=== PATIENT | female | born 1950 | race Caucasian/White ===

== ENCOUNTER → 2018-04-17 13:38 | Outpatient (CLI) | payer MEDICARE, SELFPAY ==
--- NOTE | 2018-04-17 | DI.MG.S_ITS ---
BILATERAL DIGITAL SCREENING MAMMOGRAM 3D/2D WITH CAD: 04/17/2018 CLINICAL: Routine screening. Family history of breast cancer. Comparison is made to exams dated: 02/03/2017 mammogram, 02/01/2016 mammogram, and 01/22/2016 mammogram - [facility]. There are scattered fibroglandular elements in both breasts. Current study was also evaluated with a Computer Aided Detection (CAD) system. No significant masses, calcifications, or other findings are seen in either breast. There has been no significant interval change. IMPRESSION: NEGATIVE There is no mammographic evidence of malignancy. A 1 year screening mammogram is recommended. This exam was interpreted at Station ID: [id number]. NOTE: For mammograms, a report in lay terms will be sent to the patient. Approximately 15% of breast malignancies will not be visualized mammographically. In the management of a palpable breast mass, a negative mammogram must not discourage biopsy of a clinically suspicious lesion. Electronically Signed By: Edin perdomo/kobe:04/17/2018 15:31:43 copy to: Inez Thompson letter sent: Normal Exam ACR BI-RADS Category 1: Negative [id number]
== END ==
PROVIDERS: PCP Internal Medicine; Visit Provider Internal Medicine
DX: Z12.31 Encounter for screening mammogram for malignant neoplasm of breast (principal); Z80.3 Family history of malignant neoplasm of breast
CPT/HCPCS: 77063; 77067

== ENCOUNTER → 2018-11-25 13:50 | Outpatient (CLI) | payer MEDICARE, SELFPAY ==
[2018-11-25 14:23] LABS: Add Manual Diff / Slide Review NO; Basophils Absolute Auto 0 /uL (0-100); Basophils Percent Auto 0.7 % (0-2); Eosinophils Absolute Auto 100 /uL (0-450); Eosinophils Percent Auto 1.8 % (2-4); Hematocrit 42.3 % (36-46); Hemoglobin 14.3 g/dL (12.0-16.0); Lymphocytes Absolute Auto 1300 /uL (1100-4500); Lymphocytes Percent Auto 23.1 % (25-40); Mean Corpuscular HGB Conc 33.7 % (30-36); Mean Corpuscular Hemoglobin 30.3 PG (26-34); Monocytes Absolute Auto 400 /uL (0-900); Monocytes Percent Auto 6.6 % (3-14); Neutrophils Absolute Auto 3900 /uL (1500-7000); Neutrophils Percent Auto 67.8 % (50-75); Platelet Count 247 X10^3/uL (150-400); Red Cell Distribution Width 13.3 % (11.6-14.8); White Blood Cell Count 5.8 X10^3/uL (4.5-11.0)
[2018-11-25 14:50] LABS: Alanine Aminotransferase 29 IU/L (9-52); Albumin 4.6 g/dL (3.5-5.0); Albumin Globulin Ratio 1.8 (1.0-2.8); Alkaline Phosphatase 94 U/L (38-126); Aspartate Aminotransferase 22 IU/L (14-36); Bilirubin Total 0.3 mg/dL (0.2-1.3); Blood Urea Nitrogen 14 mg/dL (7-17); Carbon Dioxide 24 mmol/L (22-32); Chloride 104 mmol/L (98-107); Estimated Glomerular Filt Rate > 60.0 mL/min (>60); Globulin 2.6 g/dL (1.7-4.1); Glucose 114 mg/dL (80-110); HEMOLYSIS < 15 (0-50); Potassium 4.2 mmol/L (3.4-5.1); Sodium 139 mmol/L (137-145); Total Protein 7.2 g/dL (6.3-8.2)
[2018-11-27 14:25] LABS: Parathyroid Hormone Int 31 pg/mL (14-64)
== END ==
PROVIDERS: PCP Internal Medicine; Visit Provider Internal Medicine
DX: D35.1 Benign neoplasm of parathyroid gland (principal); E83.52 Hypercalcemia; I10 Essential (primary) hypertension
CPT/HCPCS: 36415; 80053; 83970; 85025

== ENCOUNTER → 2019-05-19 12:01 | Outpatient (CLI) | payer MEDICARE, SELFPAY ==
--- NOTE | 2019-05-19 | DI.MG.S_ITS ---
BILATERAL DIGITAL SCREENING MAMMOGRAM 3D/2D WITH CAD: 05/19/2019 CLINICAL: Routine screening. Family history of breast cancer. Comparison is made to exams dated: 04/17/2018 mammogram, 02/03/2017 mammogram, and 02/01/2016 mammogram - [facility]. There are scattered fibroglandular elements in both breasts. Current study was also evaluated with a Computer Aided Detection (CAD) system. No significant masses, calcifications, or other findings are seen in either breast. There has been no significant interval change. IMPRESSION: NEGATIVE There is no mammographic evidence of malignancy. A 1 year screening mammogram is recommended. This exam was interpreted at Station ID: [id number]. NOTE: For mammograms, a report in lay terms will be sent to the patient. Approximately 15% of breast malignancies will not be visualized mammographically. In the management of a palpable breast mass, a negative mammogram must not discourage biopsy of a clinically suspicious lesion. Electronically Signed By: Fredy bowling/kobe:05/19/2019 16:45:22 copy to: Inez Thompson letter sent: Normal Exam ACR BI-RADS Category 1: Negative [id number]
== END ==
PROVIDERS: PCP Internal Medicine; Visit Provider Obstetrics & Gynecology
DX: Z12.31 Encounter for screening mammogram for malignant neoplasm of breast (principal); Z80.3 Family history of malignant neoplasm of breast
CPT/HCPCS: 77063; 77067

== ENCOUNTER 2019-10-06 14:00 | Emergency (ER) | payer MEDICARE, SELFPAY ==
[2019-10-06 14:31] VITALS: BP 139/72; PULSE 80; RESP 16; TEMP 37.1; O2SAT 97; BMI 26.5
[2019-10-06 16:32] LABS: Add Manual Diff / Slide Review NO; Basophils Absolute Auto 0 /uL (0-100); Basophils Percent Auto 0.1 % (0-2); Eosinophils Absolute Auto 100 /uL (0-450); Eosinophils Percent Auto 0.6 % (2-4); Hematocrit 44.4 % (36-46); Hemoglobin 14.9 g/dL (12.0-16.0); Lymphocytes Absolute Auto 1200 /uL (1100-4500); Lymphocytes Percent Auto 12.1 % (25-40); Mean Corpuscular HGB Conc 33.6 % (30-36); Mean Corpuscular Hemoglobin 30.4 PG (26-34); Mean Corpuscular Volume 90.7 fL (80-100); Monocytes Absolute Auto 500 /uL (0-900); Monocytes Percent Auto 5.3 % (3-14); Neutrophils Absolute Auto 8000 /uL (1500-7000); Neutrophils Percent Auto 81.9 % (50-75); Platelet Count 263 X10^3/uL (150-400); Red Cell Distribution Width 13.3 % (11.6-14.8); White Blood Cell Count 9.8 X10^3/uL (4.5-11.0)
[2019-10-06 16:40] LABS: Alanine Aminotransferase 25 IU/L (<35); Albumin 4.7 g/dL (3.5-5.0); Albumin Globulin Ratio 1.7 (1.0-2.8); Alkaline Phosphatase 109 U/L (38-126); Aspartate Aminotransferase 26 IU/L (14-36); BUN Creatinine Ratio 17.1 (6-22); Bilirubin Total 0.5 mg/dL (0.2-1.3); Blood Urea Nitrogen 12 mg/dL (7-17); Calcium 10.7 mg/dL (8.4-10.2); Carbon Dioxide 30 mmol/L (22-32); Chloride 104 mmol/L (98-107); Estimated Glomerular Filt Rate > 60.0 mL/min (>60); Globulin 2.8 g/dL (1.7-4.1); Glucose 94 mg/dL (80-110); HEMOLYSIS 19 (0-50); Potassium 4.6 mmol/L (3.4-5.1); Sodium 140 mmol/L (137-145); Total Protein 7.5 g/dL (6.3-8.2)
--- NOTE | 2019-10-06 17:18 | PC.NURSE ---
pt states that she has not experienced any dizziness, room spinning, or syncope
--- NOTE | 2019-10-06 18:29 | ED.GIBLEED ---
HPI - GI Bleed General Chief complaint: GI Bleed Stated complaint: diarrhea last night,'bothered with a little blood' Time Seen by Provider: 10/06/19 18:29 Source: patient Mode of arrival: Ambulatory Limitations: no limitations History of Present Illness HPI Narrative: 68-year-old female comes complaint of abdominal pain across the lower abdomen that started last night. Patient states she had several episodes of diarrhea last evening. She had 1 this morning with a little bit of blood just at the end and when she wiped her rectum she had a small amount of blood. She continues to have sort of gassy crampy abdominal pain across her lower abdomen she denies fevers but felt a little chilled yesterday. She has had some nausea although she states it is currently resolved. She has not had any vomiting. Patient states that she has not any more bowel movements today. She denies any dysuria, urgency or frequency. No flank or back pain. She states she takes medication for hypertension. Her parathyroid is monitored but she denies any other surgical history. Patient also denies any chest pain, shortness of breath or dizziness or syncope. Related Data Previous Rx's Medication Instructions Recorded albuterol sulfate [Proventil HFA] 2 puff INH SEE INSTRUCTIONS PRN 09/12/17 #8.5 gm alprazolam 1 - 2 tab PO Q8H PRN #20 tab 09/12/17 [ESTRADIOL] VAGINAL #0 10/20/17 citalopram 20 mg tablet 20 mg PO QDAY #90 tab 12/01/18 lisinopril 10 mg tablet 10 mg PO QDAY #90 tab 12/01/18 prednisone 50 mg PO DAILY #5 tab 10/06/19 Allergies Allergy/AdvReac Type Severity Reaction Status Date / Time doxycycline [DOXYCYCLINE] Allergy Mild NAUSEA Verified 10/06/19 14:30 Penicillins [PENICILLINS] Allergy Mild RASH Verified 10/06/19 14:30 Review of Systems Review of Systems ROS Unobtainable: All systems reviewed & are unremarkable except as noted in HPI and below Patient History Medical History (Updated 10/06/19 @ 20:26 by Lizeth Samuel DO) Asthma (Chronic 02/11/12) Degeneration of intervertebral disc, site unspecified (Chronic 02/11/12) Hypercalcemia (Chronic) Hypertension (Chronic) Osteopenia (Chronic 04/12/14) Parathyroid adenoma (Chronic) Recurrent major depressive disorder, in full remission (Chronic 09/12/17) Family History (Updated 04/13/14 @ 00:00 by Inez Thompson MD) Father Hypertension Social History Smoking Status: Never smoker Substance Use Type: does not use Exam Narrative Exam Narrative: GENERAL: Alert and oriented x three, obese, well-appearing female in mild distress. HEENT: Head normocephalic, atraumatic, EOMI, pupils reactive, face symmetric, moist mucous membranes NECK: Supple, full range of motion CARDIOVASCULAR: Regular rate and rhythm without murmurs, rubs or gallops. RESPIRATORY: Breath sounds equal bilaterally, no wheezes rales or rhonchi. ABDOMEN: Soft, moderate right lower quadrant tenderness, very mild suprapubic left lower quadrant tenderness.. Normoactive bowel sounds all 4 quadrants. No guarding or rebound, rigidity, no mass : No CVA tenderness EXTREMITIES: Normal range of motion, no clubbing or edema. Neurovascularly intact NEUROLOGICAL: Cranial nerves II through XII grossly intact. Moving all extremities SKIN: Warm, dry, no petechiae, no rashes or lesions. Initial Vital Signs Initial Vital Signs: Vital Signs Temperature 98.7 F 10/06/19 14:31 Pulse Rate 80 10/06/19 14:31 Respiratory Rate 16 10/06/19 14:31 Blood Pressure 139/72 10/06/19 14:31 Pulse Oximetry 97 10/06/19 14:31 Course Orders Ordered: ED Orders 10/06/19 18:39 CT abdomen pelvis w con Stat Discontinued Medications Sodium Chloride (Normal Saline 0.9%) 1,000 mls @ 1,000 mls/hr IV BOLUS ONE Stop: 10/06/19 19:38 Last Infusion: 10/06/19 20:53 Dose: 0 mls/hr Documented by: AMINAHARRINGTO Admin: 10/06/19 19:12 Dose: 1,000 mls/hr Documented by: VICKY Prednisone (Deltasone) 40 mg PO NOW ONE Stop: 10/06/19 20:36 Last Admin: 10/06/19 20:46 Dose: 40 mg Documented by: VICKY Vital Signs Vital signs: Vital Signs - 8 hr 10/06/19 19:45 10/06/19 20:26 10/06/19 20:54 Pulse Rate 80 78 75 Respiratory Rate 19 16 16 Blood Pressure [Left Arm] 151/71 H 141/69 H 143/73 H Pulse Oximetry 97 98 99 MDM - GI Bleed Lab Data Attestation: I reviewed the patient's lab results. Result diagrams: 10/06/19 16:05 10/06/19 16:05 Labs: Lab Results 10/06/19 10/06/19 10/06/19 Range/Units 16:05 16:05 16:05 WBC 9.8 (4.5-11.0) X10^3/uL RBC 4.90 (4.0-5.2) X10^6/uL Hgb 14.9 (12.0-16.0) g/dL Hct 44.4 (36-46) % MCV 90.7 (80-100) fL MCH 30.4 (26-34) PG MCHC 33.6 (30-36) % RDW 13.3 (11.6-14.8) % Plt Count 263 (150-400) X10^3/uL Neut % (Auto) 81.9 H (50-75) % Lymph % (Auto) 12.1 L (25-40) % [place] % (Auto) 5.3 (3-14) % Eos % (Auto) 0.6 L (2-4) % Baso % (Auto) 0.1 (0-2) % Neut # (Auto) 8000 H (5869-1919) /uL Lymph # (Auto) 1200 (7414-8282) /uL [place] # (Auto) 500 (0-900) /uL Eos # (Auto) 100 (0-450) /uL Baso # (Auto) 0 (0-100) /uL Sodium 140 (137-145) mmol/L Potassium 4.6 (3.4-5.1) mmol/L Chloride 104 (98-107) mmol/L Carbon Dioxide 30 (22-32) mmol/L BUN 12 (7-17) mg/dL Creatinine 0.70 (0.52-1.04) mg/dL Estimated GFR > 60.0 (>60) mL/min BUN/Creatinine Ratio 17.1 (6-22) Glucose 94 (80-110) mg/dL Calcium 10.7 H (8.4-10.2) mg/dL Total Bilirubin 0.5 (0.2-1.3) mg/dL AST 26 (14-36) IU/L ALT 25 (<35) IU/L Alkaline Phosphatase 109 (38-126) U/L Total Protein 7.5 (6.3-8.2) g/dL Albumin 4.7 (3.5-5.0) g/dL Globulin 2.8 (1.7-4.1) g/dL Albumin/Globulin Ratio 1.7 (1.0-2.8) Lipase 82 (23-300) U/L Urine Dip Bedside Urine Glucose Negative Bedside Urine Bilirubin - Negative Bedside Urine Ketone +/- 5 Urine Specific [place] 1.015 Bedside Urine Occult Blood - Negative Bedside Urine pH 6.0 Bedside Urine Protein - Negative Bedside Urine Urobilinogen - Negative Bedside Urine Nitrite - Negative Bedside Urine Leukocytes - Negative Esterase Imaging Data CT scan - abdomen: Radiologist's impression: [address] [address] [address] Scan Report Signed Patient: Ysabel Nunes R#: [id number] : 1950cct:[id number] Age/Sex: 68 / FDate of Service: 10/06/19 Loc: ED Accession Number: [id number] Procedure: CT abdomen pelvis w con Ordering Provider: Lizeth Samuel D.O. PROCEDURE: CT ABDOMEN PELVIS W CON INDICATIONS: RLQ pain TECHNIQUE: After the administration of intravenous contrast, 5 mm thick sections acquired from the diaphragm to the symphysis. 5 mm coronal and sagittal reformats were acquired. For radiation dose reduction, the following was used: automated exposure control, adjustment of mA and/or kV according to patient size. COMPARISON: None. FINDINGS: Image quality: Excellent. ABDOMEN: Lung bases: Bibasilar scarring/atelectasis is seen. Heart size is normal. Solid organs: Liver is normal in size and enhancement. Gallbladder is within normal limits. Biliary system is non dilated. Pancreas enhances normally. Spleen is normal in size and enhancement. No adrenal nodules. Kidneys demonstrate normal size and enhancement, without hydronephrosis. Peritoneum and bowel: There is a small hiatal hernia. No bowel obstruction. Moderate wall thickening and luminal narrowing is noted involving the ascending colon beginning at the level of splenic flexure with mild pericolonic fat stranding extending to proximal sigmoid colon. No free fluid or free air. No evidence of acute diverticulitis or appendicitis. Nodes and vessels: No retroperitoneal or mesenteric adenopathy by size criteria. Aorta and inferior vena cava are normal in size. Miscellaneous: No ventral hernias. PELVIS: Genitourinary: Bladder wall thickness is normal. Miscellaneous: No inguinal hernias or adenopathy. Bones: No suspicious bony lesions. No vertebral body compression fractures. IMPRESSION: 1. Finding is suggestive of descending colitis of infectious or inflammatory origin. No evidence of acute appendicitis or diverticulitis. No bowel obstruction. No free fluid or free air. Small hiatal hernia. 2. Bibasilar dependent atelectasis. No renal stone hydronephrosis. Dictated by: Hao Foster M.D. on 10/06/2019 at 20:16 Approved by: Hao Foster M.D. on 10/06/2019 at 20:20 [facility] Narrative Medical decision making narrative: Discussed with patient her CT does show colitis, we discussed unclear if this is infectious, unlikely to be ischemic possibly inflammatory. She has been afebrile, her white count is not elevated and after discussion we elected to do a course of steroids. Patient would rather follow this course then try antibiotics. I feel it is an appropriate plan. Plan is for her to should follow up with her primary care. Pain has been controlled without any medication here in the emergency department so was not discharged home with any. Patient was given strict return precautions. Discharge Plan Departure Patient Disposition: Home Clinical Impression: Colitis Discharge Date/Time: 10/06/19 20:58 Instructions: DI for Colitis Activity Restrictions/Additional Instructions: Follow-up with your primary care in the next 3-5 days for recheck. Take steroids daily until gone. Your prescription was sent to [facility] in [place]. You may take Tylenol up to a 1000 mg every 8 hours and/or ibuprofen up to 800 mg every 8 hours as needed for pain. Return to the emergency department for fevers greater 100.4 F, rapidly worsening pain, persistent vomiting, increasing bloody stools with large clots, lightheadedness, passing out, back pain or flank pain or other new or concerning symptoms. Prescriptions: New prednisone 50 mg tablet 50 mg PO DAILY Qty: 5 RF: 0 No Action albuterol sulfate [Proventil HFA] 90 MCG/PUFF HFA aerosol inhaler 2 puff INH SEE INSTRUCTIONS PRNQty: 8.5 RF: PRN alprazolam 0.5 MG tablet 1 - 2 tab PO Q8H PRNQty: 20 RF: 0 [ESTRADIOL] Vaginal Qty: 0 RF: 0 citalopram [Celexa] 20 mg tablet 20 mg PO QDAY Qty: 90 RF: 3 lisinopril 10 mg tablet 10 mg PO QDAY Qty: 90 RF: 3 Referrals: Deo Ryder MD [Primary Care Provider] -
--- NOTE | 2019-10-06 18:39 | DI.CT.S_ITS ---
PROCEDURE: CT ABDOMEN PELVIS W CON INDICATIONS: RLQ pain TECHNIQUE: After the administration of intravenous contrast, 5 mm thick sections acquired from the diaphragm to the symphysis. 5 mm coronal and sagittal reformats were acquired. For radiation dose reduction, the following was used: automated exposure control, adjustment of mA and/or kV according to patient size. COMPARISON: None. FINDINGS: Image quality: Excellent. ABDOMEN: Lung bases: Bibasilar scarring/atelectasis is seen. Heart size is normal. Solid organs: Liver is normal in size and enhancement. Gallbladder is within normal limits. Biliary system is non dilated. Pancreas enhances normally. Spleen is normal in size and enhancement. No adrenal nodules. Kidneys demonstrate normal size and enhancement, without hydronephrosis. Peritoneum and bowel: There is a small hiatal hernia. No bowel obstruction. Moderate wall thickening and luminal narrowing is noted involving the ascending colon beginning at the level of splenic flexure with mild pericolonic fat stranding extending to proximal sigmoid colon. No free fluid or free air. No evidence of acute diverticulitis or appendicitis. Nodes and vessels: No retroperitoneal or mesenteric adenopathy by size criteria. Aorta and inferior vena cava are normal in size. Miscellaneous: No ventral hernias. PELVIS: Genitourinary: Bladder wall thickness is normal. Miscellaneous: No inguinal hernias or adenopathy. Bones: No suspicious bony lesions. No vertebral body compression fractures. IMPRESSION: 1. Finding is suggestive of descending colitis of infectious or inflammatory origin. No evidence of acute appendicitis or diverticulitis. No bowel obstruction. No free fluid or free air. Small hiatal hernia. 2. Bibasilar dependent atelectasis. No renal stone hydronephrosis. Dictated by: Hao Foster M.D. on 10/06/2019 at 20:16 Approved by: Hao Foster M.D. on 10/06/2019 at 20:20
[2019-10-06 18:46] VITALS: BP 156/81; PULSE 68; RESP 19; O2SAT 100
[2019-10-06] MEDS: SODIUM CHLORIDE 0.9% 1,000 ML 1000 ML IV (19:12)
[2019-10-06 19:15] LABS: Lipase 82 U/L (23-300)
[2019-10-06 19:45] VITALS: BP 151/71; PULSE 80; RESP 19; O2SAT 97
[2019-10-06 20:26] VITALS: BP 141/69; PULSE 78; RESP 16; O2SAT 98
[2019-10-06] MEDS: predniSONE 20 MG TABLET 40 MG PO (20:46)
[2019-10-06 20:54] VITALS: BP 143/73; PULSE 75; RESP 16; O2SAT 99
== END 2019-10-06 20:58 | disposition home or self-care (01) ==
PROVIDERS: Emergency Medicine; Emergency Provider Emergency Medicine; PCP Internal Medicine
DX: K52.9 Noninfective gastroenteritis and colitis, unspecified (principal); R10.31 Right lower quadrant pain
CPT/HCPCS: 36415; 74177; 80053; 81003; 83690; 85025; 99283; 99284; Q9967

== ENCOUNTER 2019-10-07 12:58 | Emergency (ER) | payer MEDICARE, SELFPAY ==
[2019-10-07 13:01] VITALS: BP 154/82; PULSE 88; RESP 20; TEMP 36.5; O2SAT 99
[2019-10-07 13:39] LABS: Add Manual Diff / Slide Review NO; Basophils Absolute Auto 0 /uL (0-100); Basophils Percent Auto 0.3 % (0-2); Eosinophils Absolute Auto 0 /uL (0-450); Hematocrit 43.4 % (36-46); Hemoglobin 14.5 g/dL (12.0-16.0); Lymphocytes Absolute Auto 800 /uL (1100-4500); Lymphocytes Percent Auto 5.5 % (25-40); Mean Corpuscular HGB Conc 33.3 % (30-36); Mean Corpuscular Hemoglobin 30.1 PG (26-34); Mean Corpuscular Volume 90.3 fL (80-100); Monocytes Absolute Auto 400 /uL (0-900); Monocytes Percent Auto 2.8 % (3-14); Neutrophils Absolute Auto 13500 /uL (1500-7000); Neutrophils Percent Auto 91.4 % (50-75); Platelet Count 245 X10^3/uL (150-400); Red Blood Cell Count 4.81 X10^6/uL (4.0-5.2); Red Cell Distribution Width 13.4 % (11.6-14.8); White Blood Cell Count 14.7 X10^3/uL (4.5-11.0)
[2019-10-07 14:30] VITALS: BP 163/76; PULSE 79; RESP 16; O2SAT 93
--- NOTE | 2019-10-07 15:27 | ED_ITS ---
HPI - GI Bleed <Vicky Keith PA-C - Last Filed: 10/07/19 20:45> General Chief complaint: GI Bleed Stated complaint: has colitis, found blood in stool Time Seen by Provider: 10/07/19 14:23 Source: patient Mode of arrival: Ambulatory Limitations: no limitations History of Present Illness HPI Narrative: This 68-year-old female returns to ED secondary to rectal bleeding. She was seen here yesterday and diagnosed with colitis. She states after she got steroids, she felt better, slept well. This morning she states she got up and ate her Cheerios and had coffee. She had a small bowel movement and noted a streak of blood on the toilet paper. She states she has had minimal abdominal cramping, mostly earlier and gas sensation, but overall feeling much better. She feels hungry. She has not had any fever. She has not had any vomiting. She has not had any recurrent diarrhea. She does have a history of hemorrhoids and has noted some irritation and itching. Denies any other co mplaints on systems review, did take her prednisone this morning. Related Data Home Medications Medication Instructions Recorded Confirmed alprazolam 1 - 2 tab PO Q8H PRN 10/07/19 10/11/19 citalopram [Celexa] 20 mg PO DAILY 10/07/19 10/11/19 [ESTRADIOL] 1 dose VAGINAL DIRECTED PRN 10/11/19 Previous Rx's Medication Instructions Recorded albuterol sulfate [Proventil HFA] 2 puff INH SEE INSTRUCTIONS PRN 09/12/17 #8.5 gm lisinopril 10 mg tablet 10 mg PO QDAY #90 tab 12/01/18 Allergies Allergy/AdvReac Type Severity Reaction Status Date / Time doxycycline [DOXYCYCLINE] Allergy Mild NAUSEA Verified 10/11/19 15:29 Penicillins [PENICILLINS] Allergy Mild RASH Verified 10/11/19 15:29 Review of Systems <Vicky Keith PA-C - Last Filed: 10/07/19 20:45> Review of Systems ROS Unobtainable: All systems reviewed & are unremarkable except as noted in HPI and below Patient History <Vicky Keith PA-C - Last Filed: 10/07/19 20:45> Medical History Asthma (Chronic 02/11/12) Degeneration of intervertebral disc, site unspecified (Chronic 02/11/12) Hypercalcemia (Chronic) Hypertension (Chronic) Osteopenia (Chronic 04/12/14) Parathyroid adenoma (Chronic) Recurrent major depressive disorder, in full remission (Chronic 09/12/17) Family History (Updated 04/13/14 @ 00:00 by Inez Thompson MD) Father Hypertension Social History Smoking Status: Never smoker Smoking Status: Never smoker Substance Use Type: does not use Exam <Vicky Keith PA-C - Last Filed: 10/07/19 20:45> Narrative Exam Narrative: GENERAL APPEARANCE: Patient sitting comfortably, in no distress. HEENT: PERRL, EOMI, no scleral icterus NECK: Supple, no masses LUNGS: Clear to auscultation bilaterally. HEART: Rate and rhythm regular, normal S1 and S2, no S3 or S4. ABDOMEN: Soft, nontender, nondistended, bowel sounds present x 4 quadrants, no masses palpable, no hepatosplenomegaly. EXTREMITIES: No edema DERMATOLOGIC: No jaundice or exanthem NEUROLOGIC: Alert and oriented with normal speech and coordination RECTAL: On external exam there is some skin irritation, no masses or bleeding Initial Vital Signs Initial Vital Signs: Vital Signs Temperature 97.7 F 10/07/19 13:01 Pulse Rate 88 10/07/19 13:01 Respiratory Rate 20 10/07/19 13:01 Blood Pressure 154/82 H 10/07/19 13:01 Pulse Oximetry 99 10/07/19 13:01 <Lauryn Zhang MD - Last Filed: 10/16/19 07:19> Initial Vital Signs Initial Vital Signs: Vital Signs Temperature 97.7 F 10/07/19 13:01 Pulse Rate 88 10/07/19 13:01 Respiratory Rate 20 10/07/19 13:01 Blood Pressure 154/82 H 10/07/19 13:01 Pulse Oximetry 99 10/07/19 13:01 Course <Vicky Keith PA-C - Last Filed: 10/07/19 20:45> Orders Ordered: ED Orders 10/07/19 13:23 CBC Auto Diff [Complete Blood Count AUTO DIFF] Stat 10/07/19 14:10 Fecal Leukocytes Stat GI Panel (Film Array) Stat Stool Culture Stat Vital Signs Vital signs: Vital Signs - 8 hr 10/07/19 13:01 10/07/19 14:30 10/07/19 15:34 Temperature 97.7 F Pulse Rate 88 79 66 Respiratory Rate 20 16 14 Blood Pressure 154/82 H Blood Pressure [Left Arm] 163/76 H 134/69 Pulse Oximetry 99 93 98 10/07/19 16:30 Temperature Pulse Rate 68 Respiratory Rate 17 Blood Pressure 136/63 Blood Pressure [Left Arm] Pulse Oximetry 99 <Lauryn Zhang MD - Last Filed: 10/16/19 07:19> Orders Ordered: ED Orders 10/07/19 13:23 CBC Auto Diff [Complete Blood Count AUTO DIFF] Stat 10/07/19 14:10 Fecal Leukocytes Stat GI Panel (Film Array) Stat Stool Culture Stat Vital Signs Vital signs: Vital Signs - 8 hr 10/07/19 13:01 10/07/19 14:30 10/07/19 15:34 Temperature 97.7 F Pulse Rate 88 79 66 Respiratory Rate 20 16 14 Blood Pressure 154/82 H Blood Pressure [Left Arm] 163/76 H 134/69 Pulse Oximetry 99 93 98 10/07/19 16:30 Temperature Pulse Rate 68 Respiratory Rate 17 Blood Pressure 136/63 Blood Pressure [Left Arm] Pulse Oximetry 99 MDM - GI Bleed <Vicky Keith PA-C - Last Filed: 10/07/19 20:45> Lab Data Result diagrams: 10/07/19 13:23 Labs: Lab Results 10/07/19 10/07/19 Range/Units 13:23 14:10 WBC 14.7 H (4.5-11.0) X10^3/uL RBC 4.81 (4.0-5.2) X10^6/uL Hgb 14.5 (12.0-16.0) g/dL Hct 43.4 (36-46) % MCV 90.3 (80-100) fL MCH 30.1 (26-34) PG MCHC 33.3 (30-36) % RDW 13.4 (11.6-14.8) % Plt Count 245 (150-400) X10^3/uL Neut % (Auto) 91.4 H (50-75) % Lymph % (Auto) 5.5 L (25-40) % [place] % (Auto) 2.8 L (3-14) % Eos % (Auto) 0.0 L (2-4) % Baso % (Auto) 0.3 (0-2) % Neut # (Auto) 70686 H (8272-3208) /uL Lymph # (Auto) 800 L (6687-0496) /uL [place] # (Auto) 400 (0-900) /uL Eos # (Auto) 0 (0-450) /uL Baso # (Auto) 0 (0-100) /uL Stl C. cayetanensis PCR Not Reportable Stool Rotavirus (PCR) Not Reportable Stool Adenovirus (PCR) Not Reportable Stool Astrovirus (PCR) Not Reportable Stool Cryptosporidium PCR Not Reportable Stl E.coli Shiga Tox PCR Not Reportable St Sh/Enteroin Ecoli PCR Not Reportable Stool E coli O157 PCR Not Reportable Stl Enterotoxigenic E PCR Not Reportable Stool EPEC (PCR) Not Reportable Stl E. histolytica PCR Not Reportable Stool Giardia Lamblia PCR Not Reportable Stool Sapovirus (PCR) Not Reportable Stl P. shigelloides PCR Not Reportable St Y.enterocolitica PCR Not Reportable Stool Vibrio (PCR) Not Reportable Stl Vibrio cholerae PCR Not Reportable Stl Enteroaggr Ecoli PCR Not Reportable Stl Norovirus GI/GII PCR Not Reportable Campylobacter (PCR) (Not Detect) C. difficile Tox (PCR) Not Reportable Salmonella (PCR) Not Reportable Point of Care Testing Stool Occult Blood Positive <Lauryn Zhang MD - Last Filed: 10/16/19 07:19> Lab Data Labs: Lab Results 10/07/19 10/07/19 Range/Units 13:23 14:10 WBC 14.7 H (4.5-11.0) X10^3/uL RBC 4.81 (4.0-5.2) X10^6/uL Hgb 14.5 (12.0-16.0) g/dL Hct 43.4 (36-46) % MCV 90.3 (80-100) fL MCH 30.1 (26-34) PG MCHC 33.3 (30-36) % RDW 13.4 (11.6-14.8) % Plt Count 245 (150-400) X10^3/uL Neut % (Auto) 91.4 H (50-75) % Lymph % (Auto) 5.5 L (25-40) % [place] % (Auto) 2.8 L (3-14) % Eos % (Auto) 0.0 L (2-4) % Baso % (Auto) 0.3 (0-2) % Neut # (Auto) 46314 H (8185-7039) /uL Lymph # (Auto) 800 L (2325-8389) /uL [place] # (Auto) 400 (0-900) /uL Eos # (Auto) 0 (0-450) /uL Baso # (Auto) 0 (0-100) /uL Stl C. cayetanensis PCR Not Reportable Stool Rotavirus (PCR) Not Reportable Stool Adenovirus (PCR) Not Reportable Stool Astrovirus (PCR) Not Reportable Stool Cryptosporidium PCR Not Reportable Stl E.coli Shiga Tox PCR Not Reportable St Sh/Enteroin Ecoli PCR Not Reportable Stool E coli O157 PCR Not Reportable Stl Enterotoxigenic E PCR Not Reportable Stool EPEC (PCR) Not Reportable Stl E. histolytica PCR Not Reportable Stool Giardia [place]lia PCR Not Reportable Stool Sapovirus (PCR) Not Reportable Stl P. shigelloides PCR Not Reportable St Y.enterocolitica PCR Not Reportable Stool Vibrio (PCR) Not Reportable Stl Vibrio cholerae PCR Not Reportable Stl Enteroaggr Ecoli PCR Not Reportable Stl Norovirus GI/GII PCR Not Reportable Campylobacter (PCR) (Not Detect) C. difficile Tox (PCR) Not Reportable Salmonella (PCR) Not Reportable Point of Care Testing Stool Occult Blood Positive Discharge Plan Departure Patient Disposition: Home Clinical Impression: Colitis Discharge Date/Time: 10/07/19 16:31 Instructions: DI for Colitis Activity Restrictions/Additional Instructions: Since you are feeling substantially improved today, please continue the prednisone as Dr. Samuel instructed. The changes in your lab work are expected on the steroids, and you do not have signs of significant internal bleeding on the lab work today. We were unable to run most stool studies since you have not had recurrent diarrhea. You may continue to experience a little bit of bleeding due to the inflammation, however this will likely gradually resolve with the steroids. As we talked about, you should return if you have any acutely worsening symptoms again, i.e. severe pain, new fever, vomiting, etc. Otherwise please see your PCP by the 1st of next week (before you run out of the prednisone) for repeat exam, and to determine whether to continue the prednisone. You can discuss colonoscopy referral at that time. Thank you for your patience with our busy emergency department today. Prescriptions: No Action albuterol sulfate [Proventil HFA] 90 MCG/PUFF HFA aerosol inhaler 2 puff INH SEE INSTRUCTIONS PRNQty: 8.5 RF: PRN lisinopril 10 mg tablet 10 mg PO QDAY Qty: 90 RF: 3 alprazolam 0.5 MG tablet 1 - 2 tab PO Q8H PRN (Reason: Anxiety) RF: 0 citalopram [Celexa] 20 mg tablet 20 mg PO DAILY RF: 0 [ESTRADIOL] 1 dose Vaginal DIRECTED PRNRF: 0 Referrals: Deo Ryder MD [Primary Care Provider] -
--- NOTE | 2019-10-07 15:33 | PC.NURSE ---
Per Angélica Subramanian RN
[2019-10-07 15:34] VITALS: BP 134/69; PULSE 66; RESP 14; O2SAT 98
--- NOTE | 2019-10-07 16:27 | PC.NURSE ---
Patient reports she was seen here yesterday and diagnosed with Colitis. Today had two episodes of stool that was formed with blood on the toilet paper and streaking the stool.
[2019-10-07 16:30] VITALS: BP 136/63; PULSE 68; RESP 17; O2SAT 99
== END 2019-10-07 16:31 | disposition home or self-care (01) ==
PROVIDERS: Emergency Provider Internal Medicine; PCP Internal Medicine
DX: K52.9 Noninfective gastroenteritis and colitis, unspecified (principal)
CPT/HCPCS: 36415; 82272; 85025; 87045; 87177; 87205; 87507; 87899; 99283

== ENCOUNTER → 2020-05-29 16:48 | Outpatient (CLI) | payer MEDICARE, SELFPAY ==
--- NOTE | 2020-05-29 | DI.MG.S_ITS ---
BILATERAL DIGITAL SCREENING MAMMOGRAM 3D/2D WITH CAD: 05/29/2020 CLINICAL: Routine screening. Family history of breast cancer. Comparison is made to exams dated: 05/19/2019 mammogram, 04/17/2018 mammogram, 02/03/2017 mammogram, 01/22/2016 mammogram, 01/17/2015 mammogram, and 12/30/2013 mammogram - [facility]. There are scattered fibroglandular elements in both breasts. Current study was also evaluated with a Computer Aided Detection (CAD) system. No significant masses, calcifications, or other findings are seen in either breast. There has been no significant interval change. IMPRESSION: NEGATIVE There is no mammographic evidence of malignancy. A 1 year screening mammogram is recommended. This exam was interpreted at Station ID: [id number]. NOTE: For mammograms, a report in lay terms will be sent to the patient. Approximately 15% of breast malignancies will not be visualized mammographically. In the management of a palpable breast mass, a negative mammogram must not discourage biopsy of a clinically suspicious lesion. Electronically Signed By: Dale piña/kobe:05/29/2020 17:09:08 copy to: Inez Thompson letter sent: Normal Exam ACR BI-RADS Category 1: Negative [id number]
== END ==
PROVIDERS: PCP Internal Medicine; Referring Provider Internal Medicine; Visit Provider Internal Medicine
DX: Z12.31 Encounter for screening mammogram for malignant neoplasm of breast (principal); Z80.3 Family history of malignant neoplasm of breast
CPT/HCPCS: 77063; 77067

== ENCOUNTER 2020-06-06 20:08 | Emergency (ER) | payer MEDICARE, SELFPAY ==
[2020-06-06 20:14] VITALS: BP 166/76; PULSE 85; RESP 18; TEMP 36.9; O2SAT 97
--- NOTE | 2020-06-06 20:17 | ED.BACK ---
HPI - Back Pain/Injury General Chief Complaint: Back Pain/Injury Stated Complaint: lower back pain and left leg pain Time Seen by Provider: 06/06/20 20:10 Source: patient Mode of arrival: Ambulatory Limitations: no limitations History of Present Illness HPI Narrative: 69F non smoker with history of asthma, neck, and back pain presents with her and the chief complaint of back pain over the course of the day. She denies an obvious specific injury or trauma. Her pain is in the left lower back and radiates down her left leg. She denies numbness, tingling, or weakness. She has no foot drop. She denies loss of control of bowel or bladder. She's had no fever or chills. She denies history of IVDA and takes no blood thinners. Her pain is worse with motion and improves with rest. She is otherwise fine and well. MD Complaint: back pain Onset (ago): hour(s) Duration: constant Similar Symptoms Previously: No Location: lumbar spine Severity: moderate Quality: aching Radiation: left leg Relieving factors: immobilization Exacerbating factors: movement Context: turning/twisting and bending Associated symptoms: difficulty walking Related Data Home Medications Medication Instructions Recorded Confirmed alprazolam 1 - 2 tab PO Q8H PRN 10/07/19 10/11/19 [ESTRADIOL] 1 dose VAGINAL DIRECTED PRN 10/11/19 Previous Rx's Medication Instructions Recorded albuterol sulfate [Proventil HFA] 2 puff INH SEE INSTRUCTIONS PRN 09/12/17 #8.5 gm citalopram 20 mg tablet 20 mg PO DAILY #90 tab 12/23/19 lisinopril 10 mg tablet 10 mg PO QDAY #90 tab 12/23/19 ketorolac 10 mg PO Q6H PRN #14 tab 06/06/20 prednisone 20 mg PO DAILY #5 tab 06/06/20 Allergies Allergy/AdvReac Type Severity Reaction Status Date / Time doxycycline [DOXYCYCLINE] Allergy Mild NAUSEA Verified 10/11/19 15:29 Penicillins [PENICILLINS] Allergy Mild RASH Verified 10/11/19 15:29 Review of Systems Constitutional Constitutional: Denies chills, Denies fatigue, Denies fever(s), Denies frequent falls, Denies lethargy and Denies weakness Eyes Eyes: Denies change in vision, Denies eye discharge, Denies irritation and Denies loss of vision ENT Ears, Nose, Mouth, and Throat: Denies change in voice, Denies dizziness, Denies neck pain, Denies sore throat and Denies throat swelling Cardiovascular Cardiovascular: Denies chest pain, Denies irregular heart rhythm, Denies lightheadedness, Denies palpitations, Denies dyspnea, Denies dyspnea on exertion and Denies orthopnea Respiratory Respiratory: Denies cough, Denies dyspnea, Denies dyspnea on exertion and Denies wheezing Gastrointestinal Gastrointestinal: Denies abdominal pain, Denies change in bowel habits, Denies diarrhea, Denies nausea and Denies vomiting Musculoskeletal Musculoskeletal: Reports back pain, Denies neck pain and Denies numbness Integumentary/Breasts Skin/Breast: Denies pruritus, Denies erythema, Denies rash and Denies wounds Neurologic Neurologic: Denies behavioral changes, Denies confusion, Denies dizziness, Denies frequent falls, Denies loss of vision, Denies numbness and Denies weakness Psychiatric Psychiatric: Denies anxiety, Denies behavioral changes, Denies confusion, Denies depression, Denies homicidal ideation and Denies suicidal ideation Endocrine Endocrine: Denies fatigue, Denies flushing and Denies palpitations Hematologic/Lymphatic Hematologic/Lymphatic: Denies easy bruising Allergic/Immunologic Allergic/Immunologic: Denies urticaria, Denies throat swelling and Denies wheezing Patient History Medical History Asthma (Chronic 02/11/12) Degeneration of intervertebral disc, site unspecified (Chronic 02/11/12) Hypercalcemia (Chronic) Hypertension (Chronic) Osteopenia (Chronic 04/12/14) Parathyroid adenoma (Chronic) Recurrent major depressive disorder, in full remission (Chronic 09/12/17) Family History Father Hypertension Social History Smoking Status: Never smoker Smoking Status: Never smoker Substance Use Type: does not use Exam Initial Vital Signs Initial Vital Signs: Vital Signs Temperature 98.4 F 06/06/20 20:14 Pulse Rate 85 06/06/20 20:14 Respiratory Rate 18 06/06/20 20:14 Blood Pressure 166/76 H 06/06/20 20:14 Pulse Oximetry 97 06/06/20 20:14 Const General: cooperative and well developed Nutritional Appearance: well nourished [facility] Head: normocephalic and atraumatic Ears: external ears normal and TM's normal bilaterally Nose: external nose normal and No nasal discharge Face and sinus: sinuses nontender, face symmetric, no sinus tenderness and No dry mucous membranes Mouth: oral mucosae normal and moist mucous membranes Teeth and gingiva: dentition normal Throat: tonsils normal and uvula midline Eyes General: appearance normal, both eyes and all related structures Eyelids: eyelids normal Conjunctivae: conjunctivae normal Sclera: sclerae normal Pupils: PERRL EOM: EOM intact bilaterally Neck Neck: normal visual inspection, trachea midline, No lymphadenopathy, No midline deformity and No JVD Lymphatic: No lymphedema Chest Chest: normal inspection of the chest Resp Effort & Inspection: normal respiratory effort, able to speak in complete sentences, no respiratory distress and no use of accessory muscles Auscultation: clear to auscultation bilaterally, no rales, no rhonchi and no wheezes Cardio Rate: regular rate Rhythm: regular rhythm Heart Sounds: no click, no gallops, no murmurs and no rubs Pulses: normal peripheral pulses GI Inspection: non-distended Palpation: soft, no hepatosplenomegaly, No guarding, No pulsatile mass and No tender Auscultation: normal bowel sounds Back/Spine/Pelvis Other: BACK: lead oxide mill tender but free of any obvious external abnormalities. Patient exam notes decreased range of motion and muscle spasm, but no CVA tenderness, or vertebral point tenderness. There are no symptoms of cauda equina such as saddle anesthesia, and decreased reflexes, decreased sensation or strength. Skin General: no rashes or lesions noted, No jaundice and No petechiae Neuro General: patient alert, patient oriented x3, gait normal and no focal motor deficits Speech: speech normal Extrem General: full ROM, no clubbing, cyanosis or edema, no pedal edema and no calf tenderness Psych Appearance: well kempt Mental Status: mental status grossly normal Attitude: cooperative Thought Content: normal and suicidality Judgment: judgment good Course Orders Ordered: Discontinued Medications Hydrocodone Bitart/Acetaminophen (Vicodin 5/325 Prepack) 1 bottle MIS SEEINSTR ONE Stop: 06/06/20 20:56 Last Admin: 06/06/20 21:03 Dose: 1 bottle Documented by: AKINNEY Ketorolac Tromethamine (Toradol) 60 mg IM NOW ONE Stop: 06/06/20 20:55 Last Admin: 06/06/20 21:03 Dose: 60 mg Documented by: YAAKOV Prednisone (Deltasone) 40 mg PO NOW ONE Stop: 06/06/20 20:55 Last Admin: 06/06/20 21:03 Dose: 40 mg Documented by: YAAKOV Vital Signs Vital signs: Vital Signs - 8 hr 06/06/20 20:14 06/06/20 20:45 Temperature 98.4 F Pulse Rate 85 89 Respiratory Rate 18 14 Blood Pressure 166/76 H 149/66 H Pulse Oximetry 97 96 MDM - Back Pain/Injury Lab Data Labs: Urine Dip Bedside Urine Glucose Negative Bedside Urine Bilirubin - Negative Bedside Urine Ketone - Negative Urine Specific [place] 1.015 Bedside Urine Occult Blood - Negative Bedside Urine pH 7 Bedside Urine Protein - Negative Bedside Urine Urobilinogen - Negative Bedside Urine Nitrite - Negative Bedside Urine Leukocytes - Negative Esterase MDM Narrative Medical decision making narrative: Multiple etiologies of back pain considered including; Epidural abscess, cauda equina, mass occupying lesion, and other considered Patient's symptoms improved over duration of stay with above-stated therapies. Findings and discharge diagnosis discussed with patient/family followed by verbalization of understanding Return precautions discussed with patient/family whom verbalize understanding. Discharge Plan Departure Patient Disposition: Home Clinical Impression: Strain of lumbar region Qualifiers: Encounter type: initial encounter Qualified Code(s): S39.012A - Strain of muscle, fascia and tendon of lower back, initial encounter Discharge Date/Time: 06/06/20 21:10 Instructions: DI for Lumbar Radiculopathy Activity Restrictions/Additional Instructions: *You have been diagnosed with [lumbar radiculopathy] *What to do: *Take medications as directed: Prescription sent to [facility] in [place] *Follow up with your primary care provider in 2-3 days, call for an appointment. Let them know you were seen in the Emergency Department and that we ask that you be seen in follow up *Return to ER if you should have any new, worsening or concerning symptoms, such as [loss of control of bowel or bladder, lower extremity weakness, or other bothersome symptoms] Prescriptions: New prednisone 20 mg tablet 20 mg PO DAILY Qty: 5 RF: 0 ketorolac 10 mg tablet 10 mg PO Q6H PRN (Reason: pain) Qty: 14 RF: 0 No Action albuterol sulfate [Proventil HFA] 90 MCG/PUFF HFA aerosol inhaler 2 puff INH SEE INSTRUCTIONS PRNQty: 8.5 RF: PRN lisinopril 10 mg tablet 10 mg PO QDAY Qty: 90 RF: 3 citalopram [Celexa] 20 mg tablet 20 mg PO DAILY Qty: 90 RF: 1 alprazolam 0.5 MG tablet 1 - 2 tab PO Q8H PRN (Reason: Anxiety) RF: 0 [ESTRADIOL] 1 dose Vaginal DIRECTED PRNRF: 0 Referrals: Deo Ryder MD [Primary Care Provider] -
[2020-06-06 20:45] VITALS: BP 149/66; PULSE 89; RESP 14; O2SAT 96
[2020-06-06] MEDS: predniSONE 20 MG TABLET 40 MG PO (21:03)
[2020-06-06] MEDS: KETOROLAC 60 MG/2 ML VIAL IM (21:03)
[2020-06-06] MEDS: HYDROCODONE/ACET 5/325 PREPACK 1 BOTTLE MISC (21:03)
== END 2020-06-06 21:10 | disposition home or self-care (01) ==
PROVIDERS: Emergency Provider Emergency Medicine; PCP Internal Medicine; Referring Provider Internal Medicine
DX: S39.012A Strain of muscle, fascia and tendon of lower back, initial encounter (principal)
CPT/HCPCS: 81003; 96372; 99283; J1885

== ENCOUNTER → 2020-12-11 11:36 | Outpatient (CLI) | payer MEDICARE, SELFPAY ==
[2020-12-11 12:46] LABS: Add Manual Diff / Slide Review NO; Basophils Absolute Auto 100 /uL (0-100); Eosinophils Absolute Auto 100 /uL (0-450); Hematocrit 42.8 % (36-46); Hemoglobin 14.1 g/dL (12.0-16.0); Lymphocytes Absolute Auto 1500 /uL (1100-4500); Lymphocytes Percent Auto 28.5 % (25-40); Mean Corpuscular HGB Conc 32.9 % (30-36); Mean Corpuscular Hemoglobin 30.4 PG (26-34); Mean Corpuscular Volume 92.3 fL (80-100); Monocytes Absolute Auto 400 /uL (0-900); Monocytes Percent Auto 7.3 % (3-14); Neutrophils Absolute Auto 3300 /uL (1500-7000); Neutrophils Percent Auto 61.2 % (50-75); Platelet Count 228 X10^3/uL (150-400); Red Blood Cell Count 4.63 X10^6/uL (4.0-5.2); Red Cell Distribution Width 12.9 % (11.6-14.8); White Blood Cell Count 5.3 X10^3/uL (4.5-11.0)
[2020-12-11 13:06] LABS: Alanine Aminotransferase 19 IU/L (<35); Albumin 4.3 g/dL (3.5-5.0); Albumin Globulin Ratio 1.7 (1.0-2.8); Alkaline Phosphatase 101 U/L (38-126); Aspartate Aminotransferase 23 IU/L (14-36); BUN Creatinine Ratio 16.3 (6-22); Bilirubin Total 0.4 mg/dL (0.2-1.3); Blood Urea Nitrogen 13 mg/dL (7-17); Calcium 10.8 mg/dL (8.4-10.2); Carbon Dioxide 32 mmol/L (22-32); Chloride 104 mmol/L (98-107); Cholesterol 211 mg/dL (140-199); Estimated Glomerular Filt Rate > 60.0 mL/min (>60); Globulin 2.6 g/dL (1.7-4.1); Glucose 98 mg/dL (80-110); HDL Cholesterol 72 mg/dL (40-60); HEMOLYSIS < 15 (0-50); LDL Cholesterol Calculated 111 mg/dL (<100); Potassium 4.7 mmol/L (3.4-5.1); Sodium 137 mmol/L (137-145); Total Protein 6.9 g/dL (6.3-8.2); Triglycerides 140 mg/dL (35-150)
== END ==
PROVIDERS: PCP Internal Medicine; Referring Provider Internal Medicine; Visit Provider Internal Medicine
DX: D64.9 Anemia, unspecified (principal); I10 Essential (primary) hypertension; D35.1 Benign neoplasm of parathyroid gland; E83.52 Hypercalcemia
CPT/HCPCS: 36415; 80053; 80061; 85025

== ENCOUNTER 2021-02-15 15:44 | Emergency (ER) | payer MEDICARE, SELFPAY ==
[2021-02-15 15:48] VITALS: BP 135/68; PULSE 90; RESP 16; TEMP 37.1; O2SAT 96; BMI 23.9
--- NOTE | 2021-02-15 16:31 | ED_ITS ---
HPI - Skin/Abscess/Foreign Bdy General Chief complaint: Skin/Abscess/Foreign Body Stated complaint: facial injury s/p fall Time Seen by Provider: 02/15/21 15:48 Source: patient Mode of arrival: Ambulatory Limitations: no limitations History of Present Illness HPI narrative: 70-year-old female nonsmoker with history of hypertension presents with her in the chief complaint of a ground level, mechanical fall which she fell forward striking her face on the concrete. She denies loss of consciousness, persistent vomiting, the use of blood thinners, any focal neurologic symptoms such as numbness, tingling or weakness. She denies any neck or back pain. She denies chest pain or shortness of breath. She denies any extremity injury. She states her tetanus is current. Onset (ago): minute(s) Tetanus up to date: yes Location: face Severity: mild Quality: aching Pain Consistency: constant Relieving factors: none Exacerbating factors: none Associated symptoms: denies other symptoms Treatments prior to arrival: none Related Data Home Medications Medication Instructions Recorded Confirmed [ESTRADIOL] 1 dose VAGINAL DIRECTED PRN 10/11/19 12/08/20 Previous Rx's Medication Instructions Recorded albuterol sulfate [Proventil HFA] 2 puff INH SEE INSTRUCTIONS PRN 09/12/17 #8.5 gm alprazolam 0.5 mg tablet 0.5 mg PO Q8H PRN #20 tab 06/09/20 citalopram 20 mg tablet 20 mg PO DAILY #90 tab 12/25/20 lisinopril 10 mg tablet 10 mg PO QDAY #90 tab 12/29/20 Allergies Allergy/AdvReac Type Severity Reaction Status Date / Time doxycycline [DOXYCYCLINE] Allergy Mild NAUSEA Verified 12/08/20 15:20 Penicillins [PENICILLINS] Allergy Mild RASH Verified 12/08/20 15:20 Review of Systems Constitutional Constitutional: Denies chills, Denies fatigue, Denies fever(s), Denies frequent falls, Denies lethargy and Denies weakness Eyes Eyes: Denies change in vision, Denies eye discharge, Denies irritation and Denies loss of vision ENT Ears, Nose, Mouth, and Throat: Denies change in voice, Denies dizziness, Denies neck pain, Denies sore throat and Denies throat swelling Cardiovascular Cardiovascular: Denies chest pain, Denies irregular heart rhythm, Denies lightheadedness, Denies palpitations, Denies dyspnea, Denies dyspnea on exertion and Denies orthopnea Respiratory Respiratory: Denies cough, Denies dyspnea, Denies dyspnea on exertion and Denies wheezing Gastrointestinal Gastrointestinal: Denies abdominal pain, Denies change in bowel habits, Denies diarrhea, Denies nausea and Denies vomiting Musculoskeletal Musculoskeletal: Denies neck pain and Denies numbness Integumentary/Breasts Skin/Breast: Denies pruritus, Denies erythema, Denies rash and Reports wounds Neurologic Neurologic: Denies behavioral changes, Denies confusion, Denies dizziness, Denies frequent falls, Denies loss of vision, Denies numbness and Denies weakness Psychiatric Psychiatric: Denies anxiety, Denies behavioral changes, Denies confusion, Denies depression, Denies homicidal ideation and Denies suicidal ideation Endocrine Endocrine: Denies fatigue, Denies flushing and Denies palpitations Hematologic/Lymphatic Hematologic/Lymphatic: Denies easy bruising Allergic/Immunologic Allergic/Immunologic: Denies urticaria, Denies throat swelling and Denies wheezing Patient History Medical History (Updated 02/15/21 @ 16:37 by Alex Christie DO) Asthma (02/11/12) Degeneration of intervertebral disc, site unspecified (02/11/12) Hypercalcemia Hypertension Osteopenia (04/12/14) Parathyroid adenoma Recurrent major depressive disorder, in full remission (09/12/17) Family History Father Hypertension Social History Smoking Status: Never smoker Smoking Status: Never smoker Substance Use Type: does not use Exam Narrative Exam Narrative: GENERAL: [70] year old patient appears stated age. Well- nourished, well-developed patient, in mild distress. GCS 15 HEAD: Superficial abrasion on bridge of nose, no active bleeding, minimal swelling EYES: Pupils equal round and reactive. No hyphema Extraocular motions intact. ENT: Nose without bleeding, purulent drainage. No nasal septal hematoma. No dental fracture own or pain. Throat without erythema, tonsillar hypertrophy or exudate. Airway patent. NECK: Trachea midline. Non tender. No stepoffs CARDIOVASCULAR: Regular rate and rhythm without murmurs, gallops, or rubs. RESPIRATORY: Clear to auscultation. Breath sounds equal bilaterally. No wheezes, rales, or rhonchi. GASTROINTESTINAL: Abdomen soft, non-tender, nondistended. EXTREMITIES: Full painless ROM. Small bruise on super edge of L patella. No edema or joint tenderness. No ligamentous instability. No joint line tenderness or effusion of B/L Knees. No wrist, shoulder, elbow pain BACK: Nontender without deformity or crepitance. No flank tenderness. NEURO: AOx3. SKIN: Very small 3mm avulsion type laceration of upper lip in midline. No bleeding. Not through and through, does not cross vermilion border.Will not require sutures Initial Vital Signs Initial Vital Signs: Vital Signs Temperature 98.8 F 02/15/21 15:48 Pulse Rate 90 02/15/21 15:48 Respiratory Rate 16 02/15/21 15:48 Blood Pressure 135/68 02/15/21 15:48 Pulse Oximetry 96 02/15/21 15:48 Course Vital Signs Vital signs: Vital Signs - 8 hr 02/15/21 15:48 Temperature 98.8 F Pulse Rate 90 Respiratory Rate 16 Blood Pressure 135/68 Pulse Oximetry 96 Discharge Plan Departure Patient Disposition: Home Clinical Impression: Contusion of nose Qualifiers: Encounter type: initial encounter Qualified Code(s): S00.33XA - Contusion of nose, initial encounter Abrasion of nose Qualifiers: Encounter type: initial encounter Qualified Code(s): S00.31XA - Abrasion of nose, initial encounter Laceration of lip Qualifiers: Encounter type: initial encounter Qualified Code(s): S01.511A - Laceration without foreign body of lip, initial encounter Prescriptions: No Action albuterol sulfate [Proventil HFA] 90 MCG/PUFF HFA aerosol inhaler 2 puff INH SEE INSTRUCTIONS PRNQty: 8.5 RF: PRN citalopram [Celexa] 20 mg tablet 20 mg PO DAILY Qty: 90 RF: 1 lisinopril 10 mg tablet 10 mg PO QDAY Qty: 90 RF: 3 alprazolam 0.5 mg tablet 0.5 mg PO Q8H PRN (Reason: Anxiety) Qty: 20 RF: 0 [ESTRADIOL] 1 dose Vaginal DIRECTED PRNRF: 0 Referrals: Deo Ryder MD [Primary Care Provider] -
[2021-02-15 17:23] VITALS: BP 133/59; PULSE 89; RESP 16; O2SAT 97
== END 2021-02-15 17:23 | disposition home or self-care (01) ==
PROVIDERS: Emergency Provider Emergency Medicine; PCP Internal Medicine
DX: S01.511A Laceration without foreign body of lip, initial encounter (principal); W19.XXXA Unspecified fall, initial encounter
CPT/HCPCS: 99281

== ENCOUNTER → 2021-03-15 12:51 | Outpatient (CLI) | payer MEDICARE, SELFPAY ==
[2021-03-15] MEDS: COVID-19 VACC #1, MRNA(MOD) 100 MCG/0.5 ML VIAL IM (13:02)
== END ==
PROVIDERS: PCP Internal Medicine; Visit Provider Internal Medicine
DX: Z23 Encounter for immunization (principal)
CPT/HCPCS: 0011A; 91301

== ENCOUNTER → 2021-04-13 12:46 | Outpatient (CLI) | payer MEDICARE, SELFPAY ==
[2021-04-13] MEDS: COVID-19 VACC #2, MRNA(MOD) 100 MCG/0.5 ML VIAL IM (12:53)
== END ==
PROVIDERS: PCP Internal Medicine; Visit Provider Internal Medicine
DX: Z23 Encounter for immunization (principal)
CPT/HCPCS: 0012A; 91301

== ENCOUNTER → 2021-08-24 14:45 | Outpatient (CLI) | payer MEDICARE, SELFPAY ==
--- NOTE | 2021-08-24 | DI.MG.S_ITS ---
BILATERAL DIGITAL SCREENING MAMMOGRAM 3D/2D WITH CAD: 08/24/2021 CLINICAL: Routine screening. Family history of breast cancer. Comparison is made to exams dated: 05/29/2020 mammogram, 05/19/2019 mammogram, and 04/17/2018 mammogram - [facility]. There are scattered fibroglandular elements in both breasts. Current study was also evaluated with a Computer Aided Detection (CAD) system. There is a focal asymmetry in the left breast central to the nipple middle depth. This is more prominent. No other significant masses, calcifications, or other findings are seen in either breast. IMPRESSION: INCOMPLETE: NEEDS ADDITIONAL IMAGING EVALUATION The focal asymmetry in the left breast is indeterminate. Additional views with possible ultrasound are recommended. This exam was interpreted at Station ID: [id number]. NOTE: For mammograms, a report in lay terms will be sent to the patient. Approximately 15% of breast malignancies will not be visualized mammographically. In the management of a palpable breast mass, a negative mammogram must not discourage biopsy of a clinically suspicious lesion. Electronically Signed By: Dale Morrow M.D. slc/:08/24/2021 17:05:45 copy to: Inez Thompson letter sent: Additional Imaging Needed ACR BI-RADS Category 0: Incomplete [id number]
== END ==
PROVIDERS: PCP Internal Medicine; Referring Provider Internal Medicine; Visit Provider Internal Medicine
DX: Z12.31 Encounter for screening mammogram for malignant neoplasm of breast (principal); Z80.3 Family history of malignant neoplasm of breast
CPT/HCPCS: 77063; 77067

== ENCOUNTER → 2021-09-14 14:46 | Outpatient (CLI) | payer MEDICARE, SELFPAY ==
--- NOTE | 2021-09-14 14:47 | DI.MG.S_ITS ---
UNILATERAL LEFT DIGITAL DIAGNOSTIC MAMMOGRAM 3D/2D WITH ADDITIONAL VIEWS: 09/14/2021 CLINICAL: Additional evaluation requested from prior study. Comparison is made to exams dated: 08/24/2021 mammogram, 05/29/2020 mammogram, and 05/19/2019 mammogram - [facility]. There are scattered fibroglandular elements in left breast. The 6 mm oval focal asymmetry in the left breast central to the nipple middle depth is less prominent and not seen in additional views. No other significant masses or calcifications are seen in the breast. IMPRESSION: INCOMPLETE: NEEDS ADDITIONAL IMAGING EVALUATION The probably resolved 6 mm oval focal asymmetry in the left breast remains indeterminate. An ultrasound is recommended. This was performed immediately following this exam. This exam was interpreted at Station ID: [id number]. NOTE: For mammograms, a report in lay terms will be sent to the patient. Approximately 15% of breast malignancies will not be visualized mammographically. In the management of a palpable breast mass, a negative mammogram must not discourage biopsy of a clinically suspicious lesion. Electronically Signed By: Nora sethi/:09/14/2021 15:29:32 copy to: Inez Thompson ACR BI-RADS Category 0: Incomplete [id number]
--- NOTE | 2021-09-14 14:57 | DI.US.S_ITS ---
LIMITED ULTRASOUND OF LEFT BREAST: 09/14/2021 CLINICAL: Patient returns today to evaluate an asymmetry in the left breast. Comparison is made to exams dated: 09/14/2021 mammogram, 08/24/2021 mammogram, 05/29/2020 mammogram, 05/19/2019 mammogram, 04/17/2018 mammogram, and 02/03/2017 mammogram - [facility]. Ultrasound of the left breast 12-1 o'clock region was performed. Trinh scale images of the real-time examination were reviewed. No significant abnormalities were seen sonographically in the left breast. Specifically, no finding to correspond to the patient's partially resolved screening mammographic abnormality. IMPRESSION: PROBABLY BENIGN No sonographic correlate to the mammographic abnormality which was not reproducible on additional views. A follow-up left mammogram in 6 months is recommended to demonstrate stability of the partially resolved and non-reproducible mammographic abnormality. Findings and recommendations were conveyed to the patient at time of exam. This exam was interpreted at Station ID: [id number]. Electronically Signed By: Nora sethi/:09/14/2021 15:54:02 copy to: Inez Thompson letter sent: Followup Recommended Ultrasound BI-RADS: 3 Probably benign
== END ==
PROVIDERS: PCP Internal Medicine; Referring Provider Internal Medicine; Visit Provider Internal Medicine
DX: R92.8 Other abnormal and inconclusive findings on diagnostic imaging of breast (principal); N64.89 Other specified disorders of breast
CPT/HCPCS: 76642; 77065; G0279

== ENCOUNTER → 2022-01-16 12:36 | Outpatient (CLI) | payer MEDICARE, SELFPAY ==
[2022-01-16 14:15] LABS: Alanine Aminotransferase 23 IU/L (<35); Albumin 4.5 g/dL (3.5-5.0); Albumin Globulin Ratio 1.8 (1.0-2.8); Alkaline Phosphatase 86 U/L (38-126); Aspartate Aminotransferase 24 IU/L (14-36); BUN Creatinine Ratio 12.9 (6-22); Bilirubin Total 0.4 mg/dL (0.2-1.3); Blood Urea Nitrogen 11 mg/dL (7-17); Calcium 10.6 mg/dL (8.4-10.2); Carbon Dioxide 25 mmol/L (22-32); Chloride 108 mmol/L (98-107); Estimated Glomerular Filt Rate > 60.0 mL/min (>60); Globulin 2.5 g/dL (1.7-4.1); Glucose 117 mg/dL (80-110); HEMOLYSIS < 15 (0-50); Potassium 4.2 mmol/L (3.4-5.1); Sodium 140 mmol/L (137-145)
[2022-01-17 09:06] LABS: Parathyroid Hormone Int 78 pg/mL (15-65)
== END ==
PROVIDERS: PCP Internal Medicine; Referring Provider Internal Medicine; Visit Provider Internal Medicine
DX: D35.1 Benign neoplasm of parathyroid gland (principal); E83.52 Hypercalcemia; I10 Essential (primary) hypertension
CPT/HCPCS: 36415; 80053; 83970

== ENCOUNTER → 2022-04-05 13:30 | Outpatient (CLI) | payer MEDICARE, SELFPAY ==
--- NOTE | 2022-04-05 | DI.MG.S_ITS ---
UNILATERAL LEFT DIGITAL DIAGNOSTIC MAMMOGRAM 3D/2D: 04/05/2022 CLINICAL: Patient returns for a 6 month follow up of the left breast. Comparison is made to exams dated: 09/14/2021 mammogram, 08/24/2021 mammogram, 05/29/2020 mammogram, and 05/19/2019 mammogram - [facility]. There are scattered fibroglandular elements in left breast. Prior asymmetry is no longer seen in the left breast at 7 o'clock. No significant masses, calcifications, or other findings are seen in the breast. Specifically, no finding to indicate redevelopment of previously resolved screening mammographic asymmetry IMPRESSION: NEGATIVE There is no mammographic evidence of malignancy. Return to annual mammogram screening schedule is recommended. Findings and recommendations were conveyed to the patient at time of exam. This exam was interpreted at Station ID: [id number]. NOTE: For mammograms, a report in lay terms will be sent to the patient. Approximately 15% of breast malignancies will not be visualized mammographically. In the management of a palpable breast mass, a negative mammogram must not discourage biopsy of a clinically suspicious lesion. Electronically Signed By: Nora sethi/:04/05/2022 14:03:48 copy to: Inez Thompson letter sent: Normal Exam ACR BI-RADS Category 1: Negative [id number]
== END ==
PROVIDERS: PCP Internal Medicine; Referring Provider Internal Medicine; Visit Provider Internal Medicine
DX: R92.8 Other abnormal and inconclusive findings on diagnostic imaging of breast (principal)
CPT/HCPCS: 77065; G0279

== ENCOUNTER → 2022-05-14 11:46 | Outpatient (CLI) | payer MEDICARE, SELFPAY ==
--- NOTE | 2022-05-14 11:48 | DI.RAD.S_ITS ---
PROCEDURE: XR LUMBAR SPINE MIN 4V INDICATIONS: BACK PAIN TECHNIQUE: 5 views of the lumbar spine acquired, including flexion and extension views. COMPARISON: None. FINDINGS: Bones: 5 nonrib-bearing vertebrae are present. There is normal bony alignment. No vertebral body compression fractures. No suspicious bony lesions. Generalized decrease in osseous mineralization noted. Disc space narrowing and hypertrophic facet joints noted in the lower lumbar spine Soft tissues: Overlying bowel gas pattern is normal. No suspicious soft tissue calcifications. Oblique images unremarkable IMPRESSION: Osteopenia and degenerative disc disease with arthropathy Approved by: Marcos Ibarra M.D. on 05/14/2022 at 14:39
--- NOTE | 2022-05-14 11:48 | DI.RAD.S_ITS ---
PROCEDURE: XR CERVICAL SPINE 4V OR 5V INDICATIONS: NECK PAIN TECHNIQUE: 5 views of the cervical spine were acquired. COMPARISON: None. FINDINGS: Bones: No fractures or dislocations to the T1 level. No suspicious bony lesions. Oblique images shows C4-5 moderate bilateral foraminal stenosis greater on the right. Disc space narrowing present in the mid cervical spine. Craniovertebral relationships normal. Soft tissues: Prevertebral soft tissues are normal in thickness. IMPRESSION: Degenerative disc disease and arthropathy in the mid cervical spine results in bilateral C4-5 foraminal stenosis Approved by: Marcos Ibarra M.D. on 05/14/2022 at 14:30
== END ==
PROVIDERS: PCP Internal Medicine; Referring Provider Physical Medicine & Rehabilitation; Visit Provider Physical Medicine & Rehabilitation
DX: M50.30 Other cervical disc degeneration, unspecified cervical region (principal); M48.02 Spinal stenosis, cervical region; M47.812 Spondylosis without myelopathy or radiculopathy, cervical region; M47.816 Spondylosis without myelopathy or radiculopathy, lumbar region; M51.36 Other intervertebral disc degeneration, lumbar region; M85.88 Other specified disorders of bone density and structure, other site; M54.9 Dorsalgia, unspecified
CPT/HCPCS: 72050; 72110

== ENCOUNTER → 2022-05-27 15:40 | Outpatient (CLI) | payer MEDICARE, SELFPAY ==
--- NOTE | 2022-05-27 15:41 | DI.MRI.S_ITS ---
PROCEDURE: MR LUMBAR SPINE WO CON INDICATIONS: Chronic progressive right-sided axial back pain TECHNIQUE: Noncontrast sagittal T1 spin echo and T2 fast echo, sagittal STIR, and T2 fast spin echo through the lumbar spine. In cases with scoliosis, additional coronal T2 fast spin echo may be performed. COMPARISON: [facility], MR, L-SPINE WITHOUT CONTRAST, 08/28/2015, 14:13. FINDINGS: Image quality: Excellent. Alignment and Curvature: There is normal bony alignment. Bone Marrow: Marrow is of normal overall signal. No acute vertebral body compression fractures. Spinal Cord: Conus medullaris terminates at the L1 level. Visualized cord demonstrates normal signal and size. Paraspinous Soft Tissues: No paravertebral masses. T12-L1: Normal appearance. L1-L2: Normal appearance. L2-L3: Disc space narrowing and circumferential disc bulge with hypertrophic facet joints results in mild central stenosis. No foraminal stenosis. L3-L4: Disc height is maintained. Circumferential disc bulge and hypertrophic facet joints present. No central stenosis. No foraminal stenosis L4-L5: Disc space narrowing and circumferential disc bulge with hypertrophic facet joints results in mild central stenosis. Moderate bilateral foraminal stenosis L5-S1: Disc space narrowing and circumferential disc bulge with hypertrophic facet joints. No central stenosis. Severe bilateral foraminal stenosis. IMPRESSION: Multilevel degenerative disc disease and arthropathy results in varying degrees of central and foraminal stenosis including severe bilateral foraminal stenosis at L5-S1 Approved by: Marcos Ibarra M.D. on 05/27/2022 at 18:40
--- NOTE | 2022-05-27 15:41 | DI.MRI.S_ITS ---
PROCEDURE: MR CERVICAL SPINE WO CON INDICATIONS: Chronic progressive axial neck pain TECHNIQUE: Noncontrast sagittal T1 spin echo and T2 fast spin echo, sagittal STIR, foraminal oblique sagittal T2 fast spin echo, and axial gradient echo or T2 fast spin echo through the cervical spine. COMPARISON: [facility], MRI C-SPINE W/O CONTRAST, 02/10/2004, 9:41. [facility], CR, XR CERVICAL SPINE 4V OR 5V, 05/14/2022, 11:57. FINDINGS: Image quality: Excellent. Alignment and Curvature: There is loss of normal cervical lordosis. 2 mm of retrolisthesis of C3 on C4. Bone Marrow: Marrow demonstrates normal overall signal. Mild reactive signal throughout the endplates of the cervical and upper thoracic spine. Spinal Cord: Visualized spinal cord has normal size and signal. No cerebellar tonsillar herniation. Paraspinous Soft Tissues: No paravertebral masses. Prevertebral soft tissues are normal in thickness. C2-C3: Moderate disc desiccation. Mild facet and uncovertebral hypertrophy bilaterally. Mild canal stenosis. Mild bilateral foraminal stenosis. No significant change. C3-C4: Congenital canal stenosis. Moderate disc desiccation. Mild disc height loss and diffuse disc bulge with superimposed small right far lateral protrusion. Mild facet and uncovertebral hypertrophy bilaterally. Increased, moderate canal stenosis. Increased, moderate to severe bilateral foraminal stenosis with bilateral C4 nerve root compression. C4-C5: Congenital canal stenosis. Moderate disc desiccation. Mild diffuse disc bulge. Mild right greater than left facet and uncovertebral hypertrophy. Mild canal stenosis. Severe right and mild left foraminal stenosis. Right C5 nerve root compression. C5-C6: Congenital canal stenosis. Mild disc height loss. Moderate disc desiccation. Mild diffuse disc bulge/osteophyte. Moderate facet and uncovertebral hypertrophy bilaterally. Increased, moderate to severe canal stenosis. Minimal cord flattening. Increased, severe bilateral foraminal stenosis with bilateral C6 nerve root compression. C6-C7: Congenital canal stenosis. Moderate disc height loss and desiccation. Mild diffuse disc bulge/osteophyte. Moderate facet and uncovertebral hypertrophy bilaterally. Increased, moderate canal stenosis. Increased, moderate right and moderate to severe left foraminal stenosis. Left C7 nerve root compression. C7-T1: Moderate disc desiccation. Mild facet and uncovertebral hypertrophy bilaterally. Mild canal stenosis is unchanged. Increased, moderate bilateral foraminal stenosis. IMPRESSION: 1. Diffuse congenital canal stenosis with superimposed disc and facet disease, as well as uncovertebral hypertrophy. 2. Multilevel canal stenoses, worst at C5-C6 where there is minimal cord flattening. 3. Multilevel foraminal stenoses, worst at C3-C4, C4-C5, C5-C6, and C6-C7, where there is associated intraforaminal nerve root compression. Recommend correlation with clinical symptoms to ascertain relevance of these findings. Dictated by: Loretta Garza M.D. on 05/27/2022 at 16:36 Transcribed by: ADA on 05/27/2022 at 16:40 Approved by: Loretta Garza M.D. on 05/27/2022 at 16:58
== END ==
PROVIDERS: PCP Internal Medicine; Referring Provider Physical Medicine & Rehabilitation; Visit Provider Physical Medicine & Rehabilitation
DX: M47.812 Spondylosis without myelopathy or radiculopathy, cervical region (principal); M50.21 Other cervical disc displacement, high cervical region; M48.02 Spinal stenosis, cervical region; M47.816 Spondylosis without myelopathy or radiculopathy, lumbar region; M47.817 Spondylosis without myelopathy or radiculopathy, lumbosacral region; M51.36 Other intervertebral disc degeneration, lumbar region; M51.37 Other intervertebral disc degeneration, lumbosacral region
CPT/HCPCS: 72141; 72148

== ENCOUNTER → 2022-10-10 12:18 | Outpatient (CLI) | payer MEDICARE, SELFPAY ==
--- NOTE | 2022-10-10 | DI.MG.S_ITS ---
BILATERAL DIGITAL SCREENING MAMMOGRAM 3D/2D WITH CAD: 10/10/2022 CLINICAL: Routine screening. Family history of breast cancer. Comparison is made to exams dated: 09/14/2021 mammogram, 08/24/2021 mammogram, 05/29/2020 mammogram, 05/19/2019 mammogram, and 04/17/2018 mammogram - [facility]. There are scattered areas of fibroglandular density in both breasts (category b / 25%-50% glandular tissue). Current study was also evaluated with a Computer Aided Detection (CAD) system. No significant masses, calcifications, or other findings are seen in either breast. There has been no significant interval change. IMPRESSION: NEGATIVE There is no mammographic evidence of malignancy. A 1 year screening mammogram is recommended. Based on the Tyrer Cuzick model (a risk assessment model) the patient's lifetime risk is 4.0% and her 10 year risk is 2.3%. According to the ACR, ACS, and NCCN guidelines, an annual breast MRI exam along with mammogram is recommended if the patient's lifetime risk is 20% or greater. This exam was interpreted at Station ID: [id number]. NOTE: For mammograms, a report in lay terms will be sent to the patient. Approximately 15% of breast malignancies will not be visualized mammographically. In the management of a palpable breast mass, a negative mammogram must not discourage biopsy of a clinically suspicious lesion. Electronically Signed By: Dale piña/kobe:10/10/2022 13:10:03 copy to: Inez Thompson letter sent: Normal Exam ACR BI-RADS Category 1: Negative [id number]
== END ==
PROVIDERS: PCP Internal Medicine; Referring Provider Internal Medicine; Visit Provider Internal Medicine
DX: Z12.31 Encounter for screening mammogram for malignant neoplasm of breast (principal); Z80.3 Family history of malignant neoplasm of breast
CPT/HCPCS: 77063; 77067

== ENCOUNTER → 2023-04-08 13:12 | Outpatient (CLI) | payer MEDICARE, SELFPAY ==
[2023-04-08 14:50] LABS: Alanine Aminotransferase 23 IU/L (<35); Albumin 4.4 g/dL (3.5-5.0); Alkaline Phosphatase 98 U/L (38-126); Aspartate Aminotransferase 21 IU/L (14-36); BUN Creatinine Ratio 17.1 (6-22); Bilirubin Total 0.4 mg/dL (0.2-1.3); Blood Urea Nitrogen 12 mg/dL (7-17); Calcium 10.7 mg/dL (8.4-10.2); Carbon Dioxide 24 mmol/L (22-32); Chloride 104 mmol/L (98-107); Estimated Glomerular Filt Rate > 60 mL/min (>60); Globulin 2.2 g/dL (1.7-4.1); Glucose 92 mg/dL (80-110); HEMOLYSIS < 15 (0-50); Potassium 4.4 mmol/L (3.4-5.1); Sodium 136 mmol/L (137-145); Total Protein 6.6 g/dL (6.3-8.2)
[2023-04-10 08:23] LABS: Calcium 9.1 mg/dL (8.7-10.3); Parathyroid Hormone, Intact 80 pg/mL (15-65)
== END ==
PROVIDERS: PCP Internal Medicine; Referring Provider Internal Medicine; Visit Provider Internal Medicine
DX: D35.1 Benign neoplasm of parathyroid gland (principal); I10 Essential (primary) hypertension; E83.52 Hypercalcemia
CPT/HCPCS: 36415; 80053; 82310; 83970

== ENCOUNTER 2023-06-05 10:03 | Day surgery (SDC) | payer MEDICARE, SELFPAY ==
[2023-06-05 10:16] VITALS: BP 164/80; PULSE 66; RESP 14; TEMP 36.4; O2SAT 99; BMI 24.4
[2023-06-05] MEDS: LACTATED RINGERS 1,000 ML 84 ML IV (10:23)
--- NOTE | 2023-06-05 10:58 | P.HP_ITS ---
History of Present Illness History of Present Illness Date Patient Seen: 06/05/23 Time Patient Seen: 10:59 Chief complaint: Colonoscopy Narrative: Ysabel is a 72-year-old woman who is here for colonoscopy. Her last 1 was about 10 years ago and was normal. Her sister recently had an advanced precancerous polyp that need to be removed with surgery. [facility] Medical History (Updated 06/05/23 @ 10:59 by Rey Olvera MD) Asthma (02/11/12) Degeneration of intervertebral disc, site unspecified (02/11/12) Facet arthropathy, cervical Facet arthropathy, lumbar Hypercalcemia Hypertension Osteopenia (04/12/14) Parathyroid adenoma Recurrent major depressive disorder, in full remission (09/12/17) Surgical History Lucile teeth removed Family History Father Hypertension Mother Dementia Social History Smoking Status: Never smoker Meds Home Medications and Allergies Home Medications Medication Instructions Recorded Confirmed Type alprazolam 0.5 mg tablet 0.5 mg PO Q8H PRN Anxiety #20 tabs 01/24/22 06/05/23 Rx celecoxib 200 mg capsule (Celebrex) 200 mg PO DAILY #30 caps 07/01/22 06/05/23 Rx lisinopril 10 mg tablet 10 mg PO QDAY #90 tabs 04/04/23 06/05/23 Rx citalopram 20 mg tablet (Celexa) 20 mg PO DAILY #90 tabs 05/02/23 06/05/23 Rx sodium,potassium,mag sulfates 17.5 See Rx Instructions PO .COMPLEX 05/27/23 05/27/23 Rx gram-3.13 gram-1.6 gram oral soln #354 mL (Suprep Bowel Prep Kit) Allergies Allergy/AdvReac Type Severity Reaction Status Date / Time doxycycline [DOXYCYCLINE] Allergy Mild NAUSEA Verified 06/05/23 10:13 Penicillins [PENICILLINS] Allergy Mild RASH Verified 06/05/23 10:13 Exam Vital Signs (past 8 hours): - 06/05/23 10:16 Temperature 97.5 F L Pulse Rate 66 Respiratory Rate 14 Blood Pressure 164/80 H Pulse Oximetry 99 Oxygen Delivery Method Room Air Oxygen Delivery Method Room Air Const General: healthy appearing Assessment & Plan Assessment and plan (1) Family history of colonic polyps: Status: Acute Plan We reviewed the risks and benefits of colonoscopy for colon cancer screening and a family history of advanced adenomas and she would like to proceed.
--- NOTE | 2023-06-05 12:15 | PM.OP.COLON ---
Operative Date/Time/Diagnoses Date of procedure: 06/05/23 Time of procedure: 12:15 Pre-op diagnosis: Family history of polyps Post-op diagnosis: same Procedure & Clinicians Study performed: Colonoscopy Same procedure as scheduled: Yes Surgeon: Rey Olvera Procedure Notes Procedure in detail: Surgeon: Rey Olvera MD Anesthesia: Liu Ng CRNA Procedure: The patient was brought to the endoscopy suite, placed in left lateral decubitus position. The patient was connected to monitoring devices. A time-out was performed. Sedation was administered. Once the patient was adequately sedated, a digital rectal exam was performed and was normal. The scope was then inserted and advanced to the cecum where the appendiceal orifice was identified and photographed. The scope was then slowly withdrawn over greater than 6 minutes. The mucosa was thoroughly inspected. No abnormalities were found. The scope was retroflexed in the rectum. No abnormalities were seen. The scope was straightened and removed. The patient was awakened and brought to recovery. Scope withdrawal time: 6 minutes Sedation time: 19 minutes EBL: 0 Findings: Normal colon Post-procedure Recommendations: Colonoscopy in 5 years Disposition: PACU
[2023-06-05 12:16] VITALS: BP 93/60; PULSE 67; RESP 20; TEMP 36.3; O2SAT 95
[2023-06-05 12:21] VITALS: BP 89/53; PULSE 65; RESP 20; O2SAT 95
[2023-06-05 12:26] VITALS: BP 91/51; PULSE 63; RESP 19; O2SAT 95
[2023-06-05 12:32] VITALS: BP 109/68; PULSE 69; RESP 16; O2SAT 98
== END 2023-06-05 12:40 | disposition home or self-care (01) ==
PROVIDERS: PCP Internal Medicine; Referring Provider Surgery; Visit Provider Surgery
PROC: 0DJD8ZZ Inspection of Lower Intestinal Tract, Via Natural or Artificial Opening Endoscopic (ICD-10-PCS; CPT 45378; principal; 2023-06-05 11:15)
DX: Z12.11 Encounter for screening for malignant neoplasm of colon (principal); Z83.71 Family history of colonic polyps
CPT/HCPCS: G0105; J2704

== ENCOUNTER → 2023-10-13 13:58 | Outpatient (CLI) | payer MEDICARE, SELFPAY ==
--- NOTE | 2023-10-13 | DI.MG.S_ITS ---
BILATERAL DIGITAL SCREENING MAMMOGRAM 3D/2D WITH CAD: 10/13/2023 CLINICAL: Routine screening. Family history of breast cancer. Comparison is made to exams dated: 10/10/2022 mammogram, 04/05/2022 mammogram, 09/14/2021 mammogram, 08/24/2021 mammogram, and 05/29/2020 mammogram - [facility]. There are scattered areas of fibroglandular density in both breasts (category b / 25%-50% glandular tissue). Current study was also evaluated with a Computer Aided Detection (CAD) system. There is architectural distortion in the right breast at 12 o'clock anterior depth. This is more prominent. No other significant masses, calcifications, or other findings are seen in either breast. IMPRESSION: INCOMPLETE: NEEDS ADDITIONAL IMAGING EVALUATION The architectural distortion in the right breast is indeterminate. Additional views with possible ultrasound are recommended. Based on the Tyrer Cuzick model (a risk assessment model) the patient's lifetime risk is 3.8% and her 10 year risk is 2.4%. According to the ACR, ACS, and NCCN guidelines, an annual breast MRI exam along with mammogram is recommended if the patient's lifetime risk is 20% or greater. This exam was interpreted at Station ID: [id number]. NOTE: For mammograms, a report in lay terms will be sent to the patient. Approximately 15% of breast malignancies will not be visualized mammographically. In the management of a palpable breast mass, a negative mammogram must not discourage biopsy of a clinically suspicious lesion. Electronically Signed By: Dami Gleason M.D. lc/:10/13/2023 14:22:53 copy to: Inez Thompson letter sent: Additional Imaging Needed ACR BI-RADS Category 0: Incomplete 3340F
== END ==
PROVIDERS: PCP Internal Medicine; Referring Provider Internal Medicine; Visit Provider Internal Medicine
DX: Z12.31 Encounter for screening mammogram for malignant neoplasm of breast (principal); Z80.3 Family history of malignant neoplasm of breast
CPT/HCPCS: 77063; 77067

== ENCOUNTER → 2023-10-28 13:22 | Outpatient (CLI) | payer MEDICARE, SELFPAY ==
--- NOTE | 2023-10-28 13:23 | DI.MG.S_ITS ---
UNILATERAL RIGHT DIGITAL DIAGNOSTIC MAMMOGRAM 3D/2D WITH ADDITIONAL VIEWS: 10/28/2023 CLINICAL: Additional evaluation requested from prior study. Comparison is made to exams dated: 10/13/2023 mammogram, 10/10/2022 mammogram, and 08/24/2021 mammogram - [facility]. There are scattered areas of fibroglandular density in the right breast (category b / 25%-50% glandular tissue). There is 7 mm irregular equal density architectural distortion with a spiculated margin in the right breast at 1 o'clock middle depth. This is seen in additional views. This is more prominent. No other significant masses or calcifications are seen in the breast. IMPRESSION: INCOMPLETE: NEEDS ADDITIONAL IMAGING EVALUATION The 7 mm architectural distortion in the right breast is indeterminate. An ultrasound is recommended. This was performed immediately following this exam. Based on the Tyrer Cuzick model (a risk assessment model) the patient's lifetime risk is 3.8% and her 10 year risk is 2.4%. According to the ACR, ACS, and NCCN guidelines, an annual breast MRI exam along with mammogram is recommended if the patient's lifetime risk is 20% or greater. This exam was interpreted at Station ID: [id number]. NOTE: For mammograms, a report in lay terms will be sent to the patient. Approximately 15% of breast malignancies will not be visualized mammographically. In the management of a palpable breast mass, a negative mammogram must not discourage biopsy of a clinically suspicious lesion. Electronically Signed By: Nora sethi/:10/28/2023 14:08:57 copy to: Inez Thompson ACR BI-RADS Category 0: Incomplete 3340F
--- NOTE | 2023-10-28 13:23 | DI.US.S_ITS ---
LIMITED ULTRASOUND OF RIGHT BREAST AND AXILLA: 10/28/2023 CLINICAL: Patient returns today to evaluate a focal asymmetry in the right breast. Comparison is made to exams dated: 10/28/2023 mammogram, 10/13/2023 mammogram, and 10/10/2022 mammogram - [facility]. Color flow ultrasound of the right breast 1-2 o'clock, and axilla regions was performed. Trinh scale images of the real-time examination were reviewed. There is a 0.8 cm x 0.8 cm x 0.8 cm irregular mass with an indistinct and angular margin in the right breast at 1 o'clock middle depth 6 cm from the nipple. This irregular mass is hypoechoic with an echogenic boundary and posterior acoustic shadowing. This correlates with mammography findings. Color flow imaging demonstrates that there is an adjacent vascularity. No significant abnormalities were seen sonographically in the right axilla. IMPRESSION: SUSPICIOUS OF MALIGNANCY The 0.8 cm irregular mass in the right breast corresponds to the mammogram finding, and is suspicious of malignancy. Ultrasound guided biopsy is recommended. Findings and recommendations were discussed with the patient in person by Dr. Ellie Duval at time of exam. This exam was interpreted at Station ID: [id number]. Electronically Signed By: Nora sethi/:10/28/2023 14:25:26 copy to: Inez Thompson letter sent: Biopsy Required Ultrasound BI-RADS: 4 Suspicious for malignancy
== END ==
PROVIDERS: PCP Internal Medicine; Referring Provider Internal Medicine; Visit Provider Internal Medicine
DX: R92.8 Other abnormal and inconclusive findings on diagnostic imaging of breast (principal); N63.12 Unspecified lump in the right breast, upper inner quadrant
CPT/HCPCS: 76642; 77065; G0279

== ENCOUNTER → 2023-11-28 14:05 | Outpatient (CLI) | payer MEDICARE, SELFPAY ==
--- NOTE | 2023-11-28 | PATH_ITS ---
[facility] Accession Number: [id number] No. of containers..01 Tissue . 01 Material submitted: . breast - RIGHT BREAST MASS 1:30 6CMFN . 01 Diagnosis: A. Right Breast Mass, 1:30 O'clock, 6 cm From The Nipple, Biopsy: Invasive (lobular) carcinoma, grade 2 of 3 (Chava combined histologic grade, total score 6/9), with the following features: 1. Nuclear pleomorphism: Moderate. (2/3) 2. Mitotic rate: Low. (1/3) 3. Tubular differentiation: None. (3/3) 4. Size of tumor: 4 mm in largest extent (involving 1 of 4-5 cores) 5. Ductal carcinoma in situ: Not identified. - Focal atypical lobular hyperplasia is likely present. 6. Calcifications: Present in association with benign breast tissue. 7. Lymphovascular space invasion: Not identified. 8. Prognostic markers: - Estrogen receptor status: Positive (more than 99% tumor cells staining; staining intensity: Strong). - Progesterone receptor status: Positive (30% of tumor cells staining; staining intensity: Weak). - HER2 status: Negative for protein overexpression by immunohistochemistry (1+). [facility] 12/02/2023 1532 Local . 01 Electronically signed: . Montse Robertson MD, Pathologist NPI- [id number] . 01 Gross description: . The specimen is received in formalin labeled with the patient's name, , and US Bx breast, and consists of multiple yellow to samuel soft tissue fragments aggregating to 1.6 x 1.2 x 0.2 cm. Inked green, filtered, and submitted entirely in cassette A1. The specimen was removed on 11/28/2023 at 1503 hours, time in formalin not provided, cold ischemic time cannot be calculated, total fixation time is approximately 47 hours. ([id number]) /ANGELA 11/29/2023 2148 Local . 01 Microscopic: . Immunostains* are performed on block A in order to ascertain the phenotype of the invasive carcinoma, with appropriately staining external controls. The carcinoma demonstrates the following immunoprofile: . E-cadherin: Lost, in support of lobular phenotype. Beta-catenin: Lost, in support of lobular phenotype. . Predictive marker immunohistochemical studies are performed on block A1 with the invasive carcinoma showing the following results: . Estrogen receptor (SP1): Positive (more than 99% tumor cells staining; staining intensity: strong). Progesterone receptor (1E2): Positive (30% of tumor cells staining; staining intensity: weak). Her2 (4B5): Negative for protein overexpression by immunohistochemistry (1+). . Internal controls for ER and NV are positive. Cold ischemic time is <5 minutes. The scoring criteria for breast biomarkers by immunohistochemistry is based on the ASCO/CAP guidelines (Abiodun AC et al, J Clin Oncol: 2017May 12;36(20):7430-8225 and Thao ME et al, Arch Pathol Lab Med: 2009;134(6):907-22). Deparaffinized sections of formalin fixed tissue (along with appropriate positive controls) are incubated with the above antibody(s). Using the automated [place] stainer, tissue is incubated with the designated antibody which is then localized by a non-biotin, dual polymer detection system. The external controls are reviewed for appropriate reactivity and found to be adequate. Results on the target cell population are indicated above. These tests have not been validated on decalcified tissue. * This test was developed and its performance characteristics determined by [facility]. It has not been cleared or approved by the U.S. Food and Drug Administration. The FDA has determined that such clearance or approval is not necessary. This test is used for clinical purposes. It should not be regarded as investigational or for research. . 01 Pathologist provided ICD-10: C50.919 . 01 CPT . 818260, H13416, B93243, 270844, 099602, 278663 Performed at: 01 [facility] [address] [place] [address] [address], [place], [place] [id number] MD Clifton Gutierrez MD Phone: [phone]
--- NOTE | 2023-11-28 14:06 | DI.US.S_ITS ---
ULTRASOUND GUIDED BIOPSY RIGHT BREAST WITH MARKING DEVICE INSERTED AND POST DIGITAL MAMMOGRAPHIC AND ULTRASOUND IMAGIN11/28/2023 CLINICAL: Right breast mass. PATIENT CONSENT: Risks (minor bleeding, infection, vasovagal reaction and repeat procedure), benefits and alternatives were explained to the patient and written informed consent was obtained. Correlation is made to exams dated: 10/28/2023 ultrasound, 10/28/2023 mammogram, 10/13/2023 mammogram, 10/10/2022 mammogram, and 08/24/2021 mammogram - [facility]. An ultrasound guided biopsy using real-time ultrasound was performed for the 0.8 cm x 0.8 cm x 0.8 cm irregular shaped mass located in the right breast at 1 o'clock middle depth 6 cm from the nipple. The skin was prepped in the usual manner. Local anesthetic was administered to the access site. A small incision was made in the breast. The abnormality was approached from the lateral aspect. A biopsy needle was placed adjacent to the abnormality under ultrasound guidance. Once the needle was documented to be in the correct location, five specimens were obtained using an automated biopsy gun. The patient received additional local anesthetic during the procedure. A clip was inserted into the biopsy cavity. A sterile dressing was applied to the access site. Post procedure digital mammographic and ultrasound imaging was obtained. The specimens were sent to the laboratory for pathological analysis. IMPRESSION: ULTRASOUND GUIDED BIOPSY MALIGNANT Ultrasound guided biopsy of the 0.8 cm x 0.8 cm x 0.8 cm mass in the right breast at 1 o'clock middle depth 6 cm from the nipple was successful. Pathology indicates malignant invasive lobular carcinoma ([place]). Pathology results are concordant with imaging findings. A surgical/oncologic consultation is recommended. This exam was interpreted at Station ID: [id number]. Joyce Hayes M.D. lk,aty/:12/05/2023 19:36:38 copy to: Inez Thompson
--- NOTE | 2023-11-28 14:06 | DI.MG.S_ITS ---
UNILATERAL RIGHT DIGITAL DIAGNOSTIC MAMMOGRAM 3D/2D - RIGHT BREAST POST-PROCEDURE IMAGING FOR MARKER PLACEMENT: 11/28/2023 CLINICAL: Post right breast ultrasound biopsy, clip placment imaging. Comparison is made to exams dated: 10/28/2023 mammogram, 10/13/2023 mammogram, 10/10/2022 mammogram, 04/05/2022 mammogram, and 08/24/2021 mammogram - [facility]. There are scattered areas of fibroglandular density in the right breast (category b / 25%-50% glandular tissue). There is a marker clip in the appropriate position in the right breast at 1 o'clock middle depth. This marker clip placement is at the biopsy site. IMPRESSION: POST PROCEDURE MAMMOGRAM FOR MARKER PLACEMENT There was a successful marker clip placement in the right breast middle depth. Based on the Tyrer Cuzick model (a risk assessment model) the patient's lifetime risk is 3.6% and her 10 year risk is 2.4%. According to the ACR, ACS, and NCCN guidelines, an annual breast MRI exam along with mammogram is recommended if the patient's lifetime risk is 20% or greater. This exam was interpreted at Station ID: [id number]. NOTE: For mammograms, a report in lay terms will be sent to the patient. Approximately 15% of breast malignancies will not be visualized mammographically. In the management of a palpable breast mass, a negative mammogram must not discourage biopsy of a clinically suspicious lesion. Electronically Signed By: Joyce solis/kobe:11/28/2023 15:46:18 copy to: Inez Thompson ACR BI-RADS Category Post-procedure mammogram for marker placement
--- NOTE | 2023-12-10 09:18 | PC.NURSE ---
REFERRAL: referral and notification received from office of Dr. Ryder on 12/09/23. Melody Watkins at [facility] informed on 12/09. This nurse called patient this am and informed her that records are being sent to [facility], name of nurse navigator and oncologist, that she can have all ancillary services and surgery done here if she wishes and she just needs to make that clear to Melody and Dr. Encarnacion to obtain the orders. She was given the phone number of [facility] and also told that she can call back to speak with our cancer center nurses if questions or issues with connecting to [facility].
--- NOTE | 2023-12-15 09:24 | PC.NURSE ---
Pt referred to [facility]. Melody RN asked for STAT referral to surgeon be placed for f/u on path. This RN called and spoke to Dr. Ryder' director of career resources about referral is needed to surgery. Asked them to email me when referral in.
== END ==
LOC: US 14:06
PROVIDERS: PCP Internal Medicine; Referring Provider Internal Medicine; Visit Provider Internal Medicine
DX: C50.211 Malignant neoplasm of upper-inner quadrant of right female breast; Z17.0 Estrogen receptor positive status [ER+]
CPT/HCPCS: 19083; 77065

== ENCOUNTER → 2023-12-25 10:35 | Outpatient (CLI) | payer MEDICARE, SELFPAY ==
--- NOTE | 2023-12-25 10:36 | DI.MRI.S_ITS ---
PROCEDURE: MR BREAST BI WO/W CON INDICATIONS: right breast cancer TECHNIQUE: The patient was placed prone in a dedicated breast imaging coil. Precontrast axial STIR and 3D FLASH without fat saturation sequences were obtained. Both before and after bolus injection of contrast, sequential 1-minute axial 3D FLASH with fat saturation sequences for 3 time points, with subtraction images and maximum intensity projections (MIP's) generated. Delayed sagittal FLASH images with fat saturation were also obtained. Computer-aided detection, including computer algorithm analysis of MRI image data for lesion detection and characterization, pharmacokinetic analysis, with further physician review for interpretation, was performed. COMPARISON: None. FINDINGS: Image quality: Diagnostic. There is moderate background parenchymal enhancement. The breasts have scattered fibroglandular density. Right breast: At the right 1:30 position anterior depth, there is an irregular mass with spiculated margins corresponding to biopsy-proven invasive lobular carcinoma. There is an adjacent clip. This measures 9 x 9 x 9 mm, similar to sonographic measurements (13/, 14/). Within the same quadrant, there is a possible irregular mass with irregular margins measuring 6 x 7 x 6 mm (13/62, 14/), anterior depth 2:00. Left breast: In the central region middle depth of the left breast, there is a possible 7 x 5 x 8 mm oval mass (13/25, 16/68). This shows associated high T2 signal. A possible associated mass was seen on multiple prior mammograms. Miscellaneous: No other suspicious focus, mass, or non mass enhancement in either breast. No pathologic lymphadenopathy by size criteria or morphologic characteristics. No suspicious findings in the partially visualized anterior mediastinum or upper abdomen. IMPRESSION: Biopsy-proven malignancy in the right breast at 1:30 position, corresponding to invasive lobular carcinoma. Measurements are similar to prior ultrasound, proximally 9 mm. Within the same quadrant, there is another possible irregular mass with irregular margins measuring 6 x 7 mm, anterior depth at the 2 o'clock position. This is suspicious. A second-look ultrasound is recommended, if clinically indicated. In the central region middle depth of the left breast, there is a possible 7 x 8 mm oval mass with high T2 signal and possible associated mass on more remote mammograms. This is probably benign. A second-look ultrasound is recommended, if clinically indicated. BIRADS 6 Dictated by: Dami Gleason M.D. on 12/25/2023 at 12:41 Approved by: Dami Gleason M.D. on 12/25/2023 at 13:37
== END ==
PROVIDERS: PCP Internal Medicine; Referring Provider Surgery; Visit Provider Surgery
DX: C50.211 Malignant neoplasm of upper-inner quadrant of right female breast (principal)
CPT/HCPCS: 77049; A9579

== ENCOUNTER → 2024-01-08 12:11 | Outpatient (CLI) | payer MEDICARE, SELFPAY ==
--- NOTE | 2024-01-08 12:12 | DI.US.S_ITS ---
LIMITED ULTRASOUND OF LEFT BREAST: 01/08/2024 CLINICAL: Abnormal MRI. Comparison is made to exams dated: 01/08/2024 ultrasound, 12/25/2023 breast MRI, 10/13/2023 mammogram, 10/10/2022 mammogram, 04/05/2022 mammogram, and 09/14/2021 ultrasound - [facility]. Real-time ultrasound of the left breast 6 o'clock region was performed. Trinh scale images of the real-time examination were reviewed. No significant abnormalities were seen sonographically in the left breast. IMPRESSION: PROBABLY BENIGN There is no abnormality seen in the left breast to correspond with the breast MRI finding described in the central left breast closer to the 6 oclock position middle depth. This mass had features suggestive of a fibroadenoma or lymph node and is probably benign. A follow-up breast MRI in 6 months is recommended to demonstrate stability. Findings and recommendations were conveyed to the patient during today's evaluation. This exam was interpreted at Station ID: [id number]. Electronically Signed By: Fredy noe/:01/13/2024 11:44:21 copy to: Inez Thompson letter sent: Followup Recommended Ultrasound BI-RADS: 3 Probably benign
--- NOTE | 2024-01-08 12:12 | DI.US.S_ITS ---
LIMITED ULTRASOUND OF RIGHT BREAST: 01/08/2024 CLINICAL: Abnormal MRI. Comparison is made to exams dated: 12/25/2023 breast MRI, 11/28/2023 mammogram, 11/28/2023 ultrasound biopsy, 10/28/2023 ultrasound, 10/28/2023 mammogram, and 10/13/2023 mammogram - [facility]. Color flow and real-time ultrasound of the right breast 2 o'clock region were performed. Trinh scale images of the real-time examination were reviewed. There are 2 adjacent irregular masses in the right breast inferior medial quadrant anterior depth noted at the 3 o'clock position 1 cm from the nipple which in total extent likely correlates with previously described anterior right breast mass at the 2 o'clock position anterior depth on MRI. One measures approximately 0.8 x 0.5 x 0.5 cm and the second measures approximately 0.4 x 0.5 x 0.3 cm. These irregular masses are hypoechoic. These correlate with breast MRI findings. Color flow imaging demonstrates that there is associated vascularity. IMPRESSION: SUSPICIOUS OF MALIGNANCY Two adjacent irregular masses in the right breast at 3 o'clock anterior depth which likely correlate with previously described mass in the 2 o'clock anterior depth on MRI are suspicious of malignancy. A surgical consult is recommended to determine if these masses need to be biopsied under sonographic guidance for surgical/clinical managment determination. A message was sent to the ordering physician. Findings were discussed with Dr. Olvera on 01/13/2024. An image guided guide wire will be placed today so these two irregular masses can be excised at time of surgery later today. This exam was interpreted at Station ID: [id number]. Electronically Signed By: Fredy Hayes M.D. at/:01/13/2024 11:43:59 copy to: Inez Thompson Ultrasound BI-RADS: 4 Suspicious for malignancy
== END ==
PROVIDERS: PCP Internal Medicine; Referring Provider Surgery; Visit Provider Surgery
DX: R92.8 Other abnormal and inconclusive findings on diagnostic imaging of breast (principal); C50.211 Malignant neoplasm of upper-inner quadrant of right female breast; N63.15 Unspecified lump in the right breast, overlapping quadrants; Z17.0 Estrogen receptor positive status [ER+]
CPT/HCPCS: 76642

== ENCOUNTER → 2024-01-13 07:53 | Outpatient (CLI) | payer MEDICARE, SELFPAY ==
--- NOTE | 2024-01-13 07:55 | DI.NM.S_ITS ---
PROCEDURE: NM SENTINEL NODE INJECT ONLY RADIOPHARMACEUTICAL: 0.5-1.0 mCi Millipore filtered Tc-99m sulfur colloid. INDICATIONS: right breast cancer COMPARISON: [facility], , US BREAST RT LIMITED, 01/08/2024, 12:27. [facility], , MM NEEDLE LOC RT 2D, 01/13/2024, 9:46. PROCEDURE: The area around the nipple was prepped and draped in a sterile fashion. Tc-99m sulfur colloid was injected intra-dermally around the outer edge of the areola in the right breast. No image was obtained. IMPRESSION: Administration of radiotracer into the right breast periareolar region for intra-operative sentinel lymph node localization. Dictated by: Ellie Duval M.D. on 01/13/2024 at 11:58 Approved by: Ellie Duval M.D. on 01/13/2024 at 11:59
--- NOTE | 2024-01-13 07:55 | DI.MG.S_ITS ---
MAMMOGRAPHY GUIDED WIRE LOCALIZATION RIGHT BREAST: 01/13/2024 CLINICAL: Right breast Cancer. Correlation is made to exams dated: 01/08/2024 ultrasound, 12/25/2023 breast MRI, 11/28/2023 mammogram, 10/28/2023 ultrasound, 10/28/2023 mammogram, and 10/13/2023 mammogram - [facility]. A wire localization using mammography guidance was performed for the marker clip located in the right breast at 1 o'clock middle depth. The skin was prepped in the usual manner. A wire was inserted into the targeted area under mammography guidance. IMPRESSION: WIRE LOCALIZATION Wire localization for the marker clip in the right breast at 1 o'clock middle depth was successful. Future imaging is recommended as follows: 07/09/2024 breast MRI. This exam was interpreted at Station ID: [id number]. Jorge L Guidry M.D. crm/:01/14/2024 10:42:20 copy to: Inez Thompson
== END ==
LOC: NUCM 07:54
PROVIDERS: PCP Internal Medicine; Referring Provider Surgery; Visit Provider Surgery
DX: C50.211 Malignant neoplasm of upper-inner quadrant of right female breast (principal); Z17.0 Estrogen receptor positive status [ER+]
CPT/HCPCS: 19281; 38792; A9541; C1819

== ENCOUNTER 2024-01-13 07:56 | Day surgery (SDC) | payer MEDICARE, SELFPAY ==
[2024-01-09 13:19] VITALS: BMI 24.7
--- NOTE | 2024-01-13 | PATH_ITS ---
[facility] Accession Number: [id number] No. of containers..02 Tissue . 01 Material submitted: . PART A: lymph node - RIGHT SENTINEL NODE PART B: breast - RIGHT BREAST (2 WIRES) . 01 Diagnosis: A. RIGHT SENTINEL LYMPH NODE, LYMPH NODE DISSECTION: Two lymph nodes, negative for metastatic carcinoma (0/2). . B. RIGHT BREAST, LUMPECTOMY: Two foci of invasive lobular carcinoma with the following features: Tumor size Focus 1: 1.0 x 0.9 x 0.9 cm, by gross measurement. Tumor size Focus 2: 1.5 x 1.0 x 0.9 cm, by gross measurement. For both foci- Chava combined histologic grade, total score 6/9: Nuclear pleomorphism: Moderate (2/3); mitotic rate: low (1/3); tubular differentiation: None (3/3). Lobular carcinoma in situ (LCIS): Present (in both foci). Calcifications: Present (in association with LCIS and benign breast tissue). Lymphatic invasion: Not identified (in both foci). Resection margins: Focus 1: Invasive lobular carcinoma involves lateral margin (orange ink). All other margins are negative. Focus 2: Invasive lobular carcinoma involves inferior margin (blue ink). All other margins are negative. Prognostic markers: See comment. Additional findings: Intraductal papilloma, fibrocystic changes, biopsy site changes identified. Pathologic stage: (m)pT1c pN0. See comment. [facility] 01/19/2024 1230 Local . 01 Comment: Two foci of invasive lobular carcinoma are identified which appear of similar morphology and are by multiple slices. Focus 1 measures 1.0 x 0.9 x 0.9 cm and is present in contiguous slices from slice 4-to slice 7 (slides B7-17) with the lateral margin involvement seen on slide B17. Focus 2 measures 1.5 x 1.0 x 0.9 cm and is present in contiguous slices from slice 11-to slice 14 (slides B27-35) with the inferior margin involvement seen on slide B34 and B35. A benign intraductal papilloma is present on slide B35. All other margins are negative for invasive carcinoma. As part of ongoing aircraft quality control inspector, selected slides from the case were also reviewed by Drs. Simran Reid, who concurs with the diagnosis of invasive lobular carcinoma and by Dr.Tawfeq Guillen, hematopathologist, who concurs with negative sentinel lymph nodes. Please refer to patient's biopsy for the results of predictive and prognostic markers (pathology case accession #[id number]). A voicemail was left for the provider on 01/19/2024 at 1220 hours by . . 01 Electronically signed: . Ame Da Silva MD, Pathologist NPI- [id number] . 01 Gross description: . A. Received in formalin, labeled with the patient's name, , and sentinel node right, and consists of two samuel lymph node candidates with attached adipose ranging from 0.5 to 1.4 cm in greatest dimension. The specimen is submitted entirely as follows: A1-A2: Single bisected lymph node candidate. A3: Single intact lymph node candidate. B. Received: In formalin, labeled with the patient's name, , and right breast needle LOC (x2). Specimen: A previously inked right lumpectomy. Weight: 55 grams. Measurement: 7.7 cm from superior to inferior, 6.6 cm from anterior to posterior, and 3.4 cm from medial to lateral. Skin ellipse: Absent. Wire: Two wires are present, one is located more superior penetrating anteriorly and terminating posteromedially. The second is near the inferior edge and penetrates anteriorly while terminating posteriorly. Margins: Inked by the surgeon as follows: Anterior green, inferior blue, lateral orange, medial yellow, posterior black, superior red. Inking is reinforced at the bench. Sliced: From superior to inferior into 14 slices. Lesions: Three lesions are identified. Lesion #1: Description: An ill-defined, samuel firm nodule measuring 0.3 x 0.3 x 0.3 cm. Slices involved: Slice 3. Biopsy site: Absent. Distance to margins: 0.7 cm from the black margin, 0.9 cm from the red margin, and greater than 1.0 cm from all remaining margins. Lesion #2: Description: An ill-defined, yellow to white, firm lesion. Size: 1.0 x 0.9 x 0.9 cm. Slices involved: Slices 4-5. Biopsy site: Not identified. Distance from margins: 0.3 cm from the orange-inked margin, 0.4 cm from the green-inked margin, 0.8 cm from the yellow-inked margin, and greater than 1.0 cm from all remaining margins. Lesion #3: Description: An ill-defined yellow to samuel, firm lesion measuring 1.5 x 1.0 x 0.9 cm. Slices involved: Slices 12-14. Biopsy site: Absent. Distance to margins: The lesion grossly approaches the blue-inked margin, 0.2 cm from the green-inked margin, 1.0 cm from the yellow-inked margin, and greater than 1.0 cm from all remaining margins. Other: The remaining cut surfaces are yellow to white, fibroadipose tissue with fibrous tissue occupying approximately 10% of the cut surface. Fixation: The specimen was removed on 01/13/2024, time no provided; cold ischemic time cannot be calculated; and total fixation time is approximately 60 hours. . The case was discussed with Dr. Robertson. . The specimen is submitted entirely as follows: B1-B2: Slice 1, perpendicular. B3-B4: Slice 2. B5-B6: Slice 3. B7-B9: Slice 4. B10-B12: Slice 5. B13-B15: Slice 6. B16-B18: Slice 7. B19-B21: Slice 8. B22-B23: Slice 9. B24-B25: Slice 10. B26-B27: Slice 11. B28-B29: Slice 12. B30-B32: Slice 13 (B31 is a thinned section from B30). B33-B35: Slice 14 perpendicular. ([id number]) /MRV 01/14/2024 1247 Local . 01 Microscopic: . Fiorella immunostain performed on the sentinel lymph nodes, shows non-specific staining and is negative for highlighting malignant cells. FIORELLA and ecadherin, performed on blocks B17, B34 and B35- highlight the invasive carcinoma involving the lateral margin in B17 and inferior margin in B34 and B35. There is no loss ecadherin in the intraductal papilloma supporting its benign nature. All controls stain appropriately . 01 Pathologist provided ICD-10: C50.811 . 01 CPT . 894031, 933226, X26239, I54592 Specimen Comment: A courtesy copy of this report has been sent to [phone] Performed at: 01 [facility] [address], [place], [place] [id number] MD Clifton Gutierrez MD Phone: [phone]
--- NOTE | 2024-01-13 | DI.US.S_ITS ---
ULTRASOUND GUIDED WIRE LOCALIZATION RIGHT BREAST: 01/13/2024 CLINICAL: Pre-op wire loc. Correlation is made to exams dated: 01/13/2024 specimen, 01/13/2024 localization, 01/08/2024 ultrasound, 01/08/2024 ultrasound, 12/25/2023 breast MRI, and 11/28/2023 mammogram - [facility]. A wire localization using ultrasound guidance was performed for the mass located in the right breast at 3 o'clock anterior depth. The skin was prepped in the usual manner. A wire was inserted into the targeted area under ultrasound guidance. IMPRESSION: WIRE LOCALIZATION Wire localization for the mass in the right breast at 3 o'clock anterior depth was successful. Future imaging is recommended as follows: 07/09/2024 breast MRI. This exam was interpreted at Station ID: [id number]. Jorge L rangel/penjacek:01/14/2024 10:43:45 copy to: Inez Thompson
--- NOTE | 2024-01-13 | DI.MG.S_ITS ---
SPECIMEN: 01/13/2024 CLINICAL: Right breast specimen. Correlation is made to exams dated: 01/13/2024 localization [facility] Right breast lumpectomy specimen contains the biopsy clip and two wires. IMPRESSION: SPECIMEN Right breast lumpectomy specimen contains the biopsy clip. This exam was interpreted at Station ID: [id number]. Dale Morrow M.D. slc/:01/14/2024 12:09:39 copy to: Inez Thompson
[2024-01-13] MEDS: LACTATED RINGERS 1,000 ML 42 ML IV (08:30)
[2024-01-13] MEDS: ACETAMINOPHEN 325 MG TABLET 975 MG PO (08:30)
[2024-01-13 08:33] VITALS: BP 126/81; PULSE 106; RESP 16; TEMP 37; O2SAT 96; BMI 24.7
--- NOTE | 2024-01-13 13:00 | PM.PREOP ---
Pre-operative Note COVID-19 COVID-19 status: Not tested Interval Note History & Physical reviewed/Exam performed by Physician: Yes Changes to H&P: Yes H&P completed within 30 days and has changed as indicated here:: The patient had an abnormal lesion noted on MRI at the 3 o'clock position in the right breast. This has been localized with an additional wire. ASA Class (for procedural sedation): III
--- NOTE | 2024-01-13 13:59 | SUR.OPER ---
Supine on padded OR bed, head on gel donut, right arm secured on padded arm board at <90 degrees abduction, left arm tucked @ side w/blanket, fingers free from pressure, legs uncrossed, safety belt across thighs. confirmed by dr. flores.
--- NOTE | 2024-01-13 14:14 | SUR.OPER ---
Supine on padded OR bed, head on gel donut, right arm secured on padded arm board at <90 degrees abduction, left arm tucked @ side w/blanket, fingers free from pressure, legs uncrossed, safety belt at thigh, confirmed by Dr. Olvera.
[2024-01-13] MEDS: BUPIVACAINE 0.5% (PF) 30 ML VIAL INJ (15:09)
[2024-01-13] MEDS: LIDOCAINE 1% 20 ML, EPINEPHrine 0.2 MG INJ (15:12)
--- NOTE | 2024-01-13 15:16 | P.OP_ITS ---
Operative Date/Time/Diagnoses Date of procedure: 01/13/24 Time of procedure: 15:16 Pre-op diagnosis: Right breast invasive lobular carcinoma Post-op diagnosis: same Procedure & Clinicians Procedure: Wire localization right breast lumpectomy [place] lymph node biopsy Same procedure as scheduled: Yes Surgeon: Rey Olvera Anesthesia Type: General Operative Notes Procedure in detail: The patient was brought to the operating room, placed on the table in the supine position, general anesthesia was induced. The right arm was abducted on an armboard. 5 mL of 50% methylene blue were injected near the right lateral areolar border. The right breast and axilla were prepped and draped in the usual fashion. A time-out was performed. Additional massage was performed to spread the methylene blue. The lymphoscintigraphy probe was used to identify a potential sentinel node in the right axilla. We injected local anesthetic into the skin and made a transverse right axillary incision of roughly 6 cm. We dissected down through the subcutaneous adipose tissue until we could more easily palpate the node. A cluster of blue lymph nodes was dissected from the axilla. The ex vivo signal was 272. The background signal was 70.. We then packed axilla with a lap pad. We then turned to the right breast. We made a 10 cm radial incision over the upper inner quadrant of the right breast. Dissection was carried along the 2 wires to excise the 1:00 a.m. lesion as well as the 3:00 a.m. lesion. Dissection was carried down to the chest wall. The specimen was then oriented and painted. The specimen was sent to Radiology for specimen mammogram. The radiologist called OR to confirm that the wires and clips were excised. We then irrigated both wound cavities initially with sterile saline. Local anesthetic was injected into the muscle layer of the lumpectomy site. A few bleeders were cauterized. Once the wound cavities were hemostatic we injected some local anesthetic into the dermis and closed both incisions in layers using multiple interrupted 3-0 Vicryl dermal sutures followed by a running 4-0 Monocryl subcuticular closure. Steri-Strips were applied followed by dry gauze and a breast binder. EBL: 15 mL Post-operative Condition: stable Disposition: PACU
[2024-01-13 15:28] VITALS: BP 125/74; PULSE 96; RESP 14; O2SAT 96
[2024-01-13 15:32] VITALS: BP 135/80; PULSE 100; RESP 12; O2SAT 97
[2024-01-13 15:37] VITALS: BP 142/66; PULSE 95; RESP 10; O2SAT 94
[2024-01-13 15:42] VITALS: BP 138/76; PULSE 93; RESP 10; TEMP 36.8; O2SAT 93
== END 2024-01-13 16:01 | disposition home or self-care (01) ==
PROVIDERS: PCP Internal Medicine; Referring Provider Surgery; Visit Provider Surgery
PROC: (CPT 19301; principal; 2024-01-13 12:15)
DX: C50.211 Malignant neoplasm of upper-inner quadrant of right female breast (principal); Z17.0 Estrogen receptor positive status [ER+]
CPT/HCPCS: 19125; 19281; 19285; 38792; 76098; A9541; C1819; J0171; J1100; J1885; J2405; J2704; J3010; J7613

== ENCOUNTER 2024-01-27 08:21 | Day surgery (SDC) | payer MEDICARE, SELFPAY ==
--- NOTE | 2024-01-27 | PATH_ITS ---
[facility] Accession Number: [id number] No. of containers..02 Tissue . 01 Material submitted: . PART A: skin - NEW SUPERIOR LATERAL MARGIN PART B: skin - NEW INFERIOR MARGIN . 01 Diagnosis: A. BREAST, NEW SUPERIOR LATERAL MARGIN, EXCISION: Breast parenchyma with prior surgery site changes including fat necrosis, foreign body giant cell reaction, and histiocytic inflammation. No evidence of malignancy. . B. BREAST, NEW INFERIOR MARGIN, EXCISION: Breast parenchyma with prior surgery site changes including fat necrosis, foreign body giant cell reaction, and histiocytic inflammation. No evidence of malignancy. [facility] 01/30/2024 1417 Local . 01 Electronically signed: . Ame Da Silva MD, Pathologist NPI- [id number] . 01 Gross description: . A. Received in formalin with two identifiers and new superior lateral margin, is an unoriented fragment of yellow, lobulated soft tissue weighing 15 grams and measuring 8.2 x 3.2 x 0.7 cm. One aspect of the external surface is slightly roughened, possibly consistent with cautery artifact, and is inked black, while the opposite yellow lobulated surface is inked red. Sectioning reveals yellow to white, fibroadipose tissue with white, fibrous tissue occupying approximately 20% of the cut surface. No distinct lesions are identified, and the specimen is submitted entirely and sequentially in cassettes A1-A15, with the end slices taken perpendicularly in A1 and A15. B. Received in formalin with two identifiers and new inferior margin, is an unoriented, yellow, lobulated soft tissue fragment weighing 19 grams, and measuring 6.4 x 4.1 x 0.9 cm. One side of the specimen is samuel and slightly roughened, consistent with cautery artifact, and is inked black, while the opposite surface is yellow, lobulated, and is inked green. Sectioning reveals yellow to white fibroadipose tissue with white, fibrous tissue occupying approximately 30% of the cut surface with no distinct lesions identified. . Submitted entirely as follows: B1-B2: First section perpendicular. B3-B10: Single composite sequential sections. B11-B12: Last section perpendicular. . Both specimens were removed on 01/27/2024, time not provided. Cold ischemic time cannot be calculated. Total fixation time is approximately 57 hours. ([id number]) /MRV 01/29/2024 1228 Local . 01 Microscopic: . A,B. An FIORELLA immunostain performed on multiple blocks is negative for single occult carcinoma cells. Controls stain appropriately. . 01 Pathologist provided ICD-10: Z85.3 . 01 CPT . 500222, 153052, [id number] Specimen Comment: A courtesy copy of this report has been sent to [phone] Performed at: 01 [facility] [address] [place] [address], [place], [place] [id number] MD Clifton Gutierrez MD Phone: [phone]
[2024-01-27 08:40] VITALS: BMI 24.3
[2024-01-27 08:54] VITALS: BP 113/63; PULSE 65; RESP 12; TEMP 36.9; O2SAT 98
[2024-01-27] MEDS: LACTATED RINGERS 1,000 ML 42 ML IV (08:57)
--- NOTE | 2024-01-27 10:05 | PM.HP.1 ---
History of Present Illness History of Present Illness Date Patient Seen: 01/27/24 Time Patient Seen: 10:05 Chief complaint: Right Excision Lesion/Mass Narrative: Ysabel is a 73-year-old woman who presented with right breast invasive lobular carcinoma. She had a right breast wire localization lumpectomy and sentinel lymph node biopsy on January 12. The path came back as invasive lobular carcinoma. The sentinel node was negative but the margin was positive in the lateral and inferior dimensions. [facility] Medical History (Updated 01/09/24 @ 13:22 by Umu Martinez RN) Sciatica Arthritis Sinus drainage Anxiety Facet arthropathy, lumbar Facet arthropathy, cervical Hypercalcemia Parathyroid adenoma Degeneration of intervertebral disc, site unspecified (02/11/12) Recurrent major depressive disorder, in full remission (09/12/17) Osteopenia (04/12/14) Hypertension Asthma (02/11/12) Surgical History (Updated 01/26/24 @ 09:24 by Umu Martinez RN) History of lumpectomy of right breast (01/13/24) [place] teeth removed (1969) Family History Father Hypertension Mother Dementia Social History household members: spouse Smoking Status: Never smoker alcohol intake: current Meds Home Medications and Allergies Home Medications Medication Instructions Recorded Confirmed Type alprazolam 0.5 mg tablet 0.5 mg PO Q8H PRN Anxiety #20 tabs 01/24/22 01/27/24 Rx lisinopril 10 mg tablet 10 mg PO QDAY #90 tabs 04/04/23 01/27/24 Rx citalopram 20 mg tablet (Celexa) 20 mg PO DAILY #90 tabs 05/02/23 01/27/24 Rx albuterol sulfate 90 mcg/actuation 2 puff inhalation Q4-6H PRN 01/09/24 01/27/24 History aerosol inhaler Shortness Of Breath celecoxib 200 mg capsule (Celebrex) 200 mg PO DAILY PRN Pain 01/09/24 01/27/24 History hydrocodone 5 mg-acetaminophen 325 1 tab PO Q8H PRN pain #10 tabs 01/13/24 01/27/24 Rx mg tablet Allergies Allergy/AdvReac Type Severity Reaction Status Date / Time Penicillins [PENICILLINS] Allergy Mild RASH Verified 01/27/24 08:38 doxycycline [DOXYCYCLINE] AdvReac Mild NAUSEA Verified 01/27/24 08:38 Exam Vital Signs (past 8 hours): - 01/27/24 08:54 Temperature 98.4 F Pulse Rate 65 Respiratory Rate 12 Blood Pressure 113/63 Pulse Oximetry 98 Oxygen Delivery Method Room Air Oxygen Delivery Method Room Air Narrative Exam Narrative: Well-healed lumpectomy scar of the right breast Assessment & Plan Assessment and plan (1) Breast cancer, right: Qualifiers: Breast location: upper inner quadrant of breast Estrogen receptor status: positive Patient sex: female Qualified Code(s): C50.211 - Malignant neoplasm of upper-inner quadrant of right female breast; Z17.0 - Estrogen receptor positive status [ER+] Status: Acute Plan We reviewed the pathology and I recommended re-excision of the lateral and inferior margins of the lumpectomy cavity and she would like to proceed.
--- NOTE | 2024-01-27 11:00 | SUR.OPER ---
Supine on padded OR bed, head on pillow, non-operative arm padded and tucked at side, operative arm on padded arm board at <90 degrees abduction, legs uncrossed, safety belt at thigh, tape over blanket over lower legs .
[2024-01-27] MEDS: LIDOCAINE 1% W/EPI 20 ML INJ (11:13)
[2024-01-27] MEDS: BACITRACIN OINT 0.9 GM PCKT 1 APPLIC TOP (11:14)
[2024-01-27] MEDS: BUPIVACAINE 0.5% (PF) 30 ML VIAL INJ (11:14)
--- NOTE | 2024-01-27 11:33 | P.OP_ITS ---
Operative Date/Time/Diagnoses Date of procedure: 01/27/24 Time of procedure: 11:33 Pre-op diagnosis: Right breast lobular cancer Post-op diagnosis: same Procedure & Clinicians Procedure: Reexcision of right breast cancer Same procedure as scheduled: Yes Surgeon: Rey Olvera Financial Planner: Wesly Florian Operative Notes Procedure in detail: The patient was brought to the operating room and placed on the table in the supine position and general anesthesia was induced. The right breast was prepped and draped in the usual fashion and a time-out was performed. The prior surgical incision was opened sharply. The seroma was aspirated. We started with the lateral margin. We started taking a new lateral margin by using cautery extending from the superior to the inferior to the deep aspect of the lateral margin. We then took a new inferior margin which extended from the medial to the lateral to the deep margin. Additional hemoclips were applied to demarcate cavity. The wound was irrigated with sterile water. Additional local was injected and the wound was closed in layers using multiple interrupted 3-0 Vicryl dermal sutures and a running 4-0 Monocryl subcuticular closure. Steri- Strips and a binder were applied. EBL: 10 mL Wesly SHEA provided assistance with exposure, retraction and closure of incisions. Post-operative Condition: stable Disposition: PACU
[2024-01-27 11:45] VITALS: BP 141/72; PULSE 90; RESP 14; TEMP 36.7; O2SAT 98
[2024-01-27 11:51] VITALS: BP 134/77; PULSE 91; RESP 15; TEMP 36.6; O2SAT 97
[2024-01-27 11:57] VITALS: BP 131/74; PULSE 75; RESP 16; TEMP 36.6; O2SAT 98
== END 2024-01-27 12:25 | disposition home or self-care (01) ==
PROVIDERS: PCP Internal Medicine; Referring Provider Surgery; Visit Provider Surgery
PROC: (CPT 19301; principal; 2024-01-27 10:00)
DX: C50.211 Malignant neoplasm of upper-inner quadrant of right female breast (principal); Z17.0 Estrogen receptor positive status [ER+]
CPT/HCPCS: 19301; J1100; J2405; J2704; J3010

== ENCOUNTER → 2024-04-09 14:43 | Outpatient (CLI) | payer MEDICARE, SELFPAY ==
--- NOTE | 2024-04-09 | DI.RAD.S_ITS ---
PROCEDURE: XR DEXA AXIAL SKELETON INDICATIONS: HX OSTEOPENIA/MEDICAL LABORATORY SCIENTIST USE AROMATASE INHIBITOR COMPARISON: [facility], , DEXA AXIAL SKELETON, 03/16/2013, 13:55. FINDINGS: Lumbar Spine: Bone mineral density is 0.804 g/cm2, T score -2.2, previously -1.0. Left Hip: Bone mineral density 0.721 g/cm2, T score -1.8, previously -1.1. Left Femoral Neck: Bone mineral density 0.532 g/cm2, T score -2.9, osteoporosis. Right Hip: Bone mineral density is 0.699 g/cm2, T score -2, previously -1.3. Right Femoral Neck: Bone mineral density 0.472 g/cm2, T score -3.4, osteoporosis. Fracture Risk Calculation (when applicable): Not applicable due to osteoporosis diagnosis. IMPRESSION: Osteoporosis. Follow-up guidelines as follows: Osteoporosis: Consider a repeat DEXA and Vertebral Fracture Assessment (VFA) exam in 2 years or sooner if medically necessary, to reassess this patient's status. Osteopenia: Consider a repeat DEXA in 2-3 years to reassess this patient's status, or if there is a new clinical indication. Normal: Consider a repeat DEXA in 5 years or sooner, or if there is a new clinical indication. All treatment decisions require clinical judgment and consideration of individual patient factors, including patient preferences, comorbidities, previous drug use, risk factors not captured in the FRAX model (e.g., frailty, falls, vitamin D deficiency, increased bone turnover, interval significant decline in bone density ) and possible under- or over-estimation of fracture risk by FRAX. In addition, the NOF Guide recommends that FDA-approved medical therapies be considered in postmenopausal women and men age >= 50 years with a: * Hip or vertebral (clinical or morphometric) fracture * T-score of <=-2.5 at the spine or hip * Ten-year fracture probability by FRAX of >= 3% for hip fracture or >=20% for major osteoporotic fracture. People with diagnosed cases of osteoporosis or at high risk for fracture should have regular bone mineral density tests. For patients eligible for Medicare, routine testing is allowed once every 2 years. The testing frequency can be increased to one year for patients who have rapidly progressing disease, those who are receiving or discontinuing medical therapy to restore bone mass, or have additional risk factors. Dictated by: Jaiden Lennon M.D. on 04/09/2024 at 16:04 Approved by: Jaiden Lennon M.D. on 04/09/2024 at 16:05
== END ==
LOC: RAD 14:44
PROVIDERS: PCP Internal Medicine; Referring Provider Internal Medicine Hematology & Oncology; Visit Provider Internal Medicine Hematology & Oncology
DX: C50.811 Malignant neoplasm of overlapping sites of right female breast (principal); M81.0 Age-related osteoporosis without current pathological fracture; Z17.0 Estrogen receptor positive status [ER+]; Z79.811 Long term (current) use of aromatase inhibitors
CPT/HCPCS: 77080

== ENCOUNTER → 2024-08-23 13:10 | Outpatient (CLI) | payer MEDICARE, SELFPAY ==
--- NOTE | 2024-08-23 13:11 | DI.MRI.S_ITS ---
BREAST MRI OF BOTH BREASTS: 08/23/2024 CLINICAL: History of Breast Cancer. PROCEDURE: MR BREAST BI WO/W CON INDICATIONS: History of right breast cancer status post lumpectomy. Referred for evaluation of probably benign BI-RADS 3 finding in the left breast. TECHNIQUE: The patient was placed prone in a dedicated breast imaging coil. Precontrast axial STIR and 3D FLASH without fat saturation sequences were obtained. Both before and after bolus injection of contrast, sequential 1-minute axial 3D FLASH with fat saturation sequences for 3 time points, with subtraction images and maximum intensity projections (MIP's) generated. Delayed sagittal FLASH images with fat saturation were also obtained. Computer-aided detection, including computer algorithm analysis of MRI image data for lesion detection and characterization, pharmacokinetic analysis, with further physician review for interpretation, was performed. COMPARISON: [facility], , MR BREAST BI WO/W CON, 12/25/2023, 10:57. FINDINGS: Image quality: Diagnostic. There is scattered amount of fibroglandular tissue. There is mild and symmetric background parenchymal enhancement. Right breast: There are postsurgical changes in the right breast from prior lumpectomy including postoperative seromain the lumpectomy bed and skin thickening along the medial aspect of the right breast. No suspicious enhancement or lymphadenopathy. Left breast: No suspicious enhancement or lymphadenopathy in the left breast. The previously described 8 mm possible mass in the central middle depth of the left breast is not definitively visualized, likely due to variations in background parenchymal enhancement. No prior ultrasound correlate was identified. IMPRESSION: BENIGN Status post right breast lumpectomy. No MRI evidence of malignancy. Recommend routine annual screening. This exam was interpreted at Station ID: [id number]. Electronically Signed By: Tatiana Patel M.D., Ph.D. eb/:08/25/2024 23:41:12 copy to: Inez Thompson letter sent: Normal Exam ACR BI-RADS Category 2: Benign
== END ==
PROVIDERS: PCP Internal Medicine; Referring Provider Internal Medicine; Visit Provider Internal Medicine
DX: C50.811 Malignant neoplasm of overlapping sites of right female breast (principal); Z17.0 Estrogen receptor positive status [ER+]
CPT/HCPCS: 77049; A9579

== ENCOUNTER 2024-09-02 15:19 | Emergency (ER) | payer MEDICARE, SELFPAY ==
[2024-09-02 15:49] VITALS: BP 113/67; PULSE 74; RESP 18; TEMP 36.8; O2SAT 95; BMI 24.4
[2024-09-02 19:54] VITALS: PULSE 69; O2SAT 97
[2024-09-02 19:55] VITALS: BP 138/65; PULSE 65; RESP 18; O2SAT 94
[2024-09-02 20:00] VITALS: BP 138/67; PULSE 66; RESP 18; O2SAT 97
--- NOTE | 2024-09-02 20:22 | PC.NURSE ---
Pt ambulatory to restroom without difficulty or assistance
[2024-09-02 22:32] VITALS: BP 152/69; PULSE 59; RESP 20; O2SAT 95
--- NOTE | 2024-09-02 22:32 | ED.GIBLEED ---
HPI - GI Bleed General Chief complaint: GI Bleed Stated complaint: bleeding hemroid Time Seen by Provider: 09/02/24 22:25 Source: patient Mode of arrival: Ambulatory History of Present Illness HPI Narrative: 73-year-old female with intermittent rectal bleeding, some discomfort, has firm stools taking breast cancer related medication that might cause constipation, does not take stool softeners. No recent colonoscopy or abdominal rectal procedures. No known history of known hemorrhoids but she feels that there is a mass that is protruding from the rectum last days. Denies use of blood thinner medications. Related Data Home Medications Medication Instructions Recorded Confirmed albuterol sulfate 90 mcg/actuation 2 puff inhalation Q4-6H PRN 01/09/24 08/20/24 aerosol inhaler Shortness Of Breath anastrozole 1 mg tablet 1 mg PO DAILY 08/20/24 08/20/24 Previous Rx's Medication Instructions Recorded alprazolam 0.5 mg tablet 0.5 mg PO Q8H PRN Anxiety #20 tabs 01/24/22 citalopram 20 mg tablet (Celexa) 20 mg PO DAILY #90 tabs 04/27/24 lisinopril 10 mg tablet 10 mg PO QDAY #90 tabs 04/27/24 celecoxib 200 mg capsule (Celebrex) 200 mg PO DAILY PRN Pain #90 caps 08/20/24 risedronate 150 mg tablet 150 mg PO QMONTH #3 tabs 08/20/24 docusate sodium 100 mg capsule 100 mg PO BID #14 caps 09/02/24 (Colace) pramoxine 1 % topical foam 1 applic NE BID #15 grams 09/02/24 (Proctofoam) Allergies Allergy/AdvReac Type Severity Reaction Status Date / Time Penicillins [PENICILLINS] Allergy Mild RASH Verified 08/20/24 15:47 doxycycline [DOXYCYCLINE] AdvReac Mild NAUSEA Verified 08/20/24 15:47 Review of Systems Review of Systems Narrative: See HPI Patient History Medical History (Updated 09/02/24 @ 22:39 by Ronni Oviedo MD) Osteoporosis Sciatica Arthritis Sinus drainage Anxiety Facet arthropathy, lumbar Facet arthropathy, cervical Hypercalcemia Parathyroid adenoma Degeneration of intervertebral disc, site unspecified (02/11/12) Recurrent major depressive disorder, in full remission (09/12/17) Osteopenia (04/12/14) Hypertension Asthma (02/11/12) Surgical History History of lumpectomy of right breast (01/13/24) [place] teeth removed (1969) Family History Father Hypertension Mother Dementia Social History household members: spouse Smoking Status: Never smoker alcohol intake: current Smoking Status: Never smoker alcohol intake frequency: holidays/special occasions only Substance Use Type: does not use Exam Narrative Exam Narrative: GENERAL: Well-developed patient, in mild distress. HEAD: Atraumatic. Normocephalic. EYES: Pupils equal round and reactive. Extraocular motions intact. No scleral icterus. No injection or drainage. ENT: Nose without bleeding, purulent drainage. Throat without erythema, tonsillar hypertrophy or exudate. Airway patent. NECK: Trachea midline. Non tender CARDIOVASCULAR: Regular rate and rhythm without murmurs, gallops, or rubs. RESPIRATORY: Clear to auscultation. Breath sounds equal bilaterally. No wheezes, rales, or rhonchi. GASTROINTESTINAL: Abdomen soft, non-tender, nondistended. Rectal: External inspection with nursing assistance for exam, thrombosed hemorrhoid appearance in left rectal external, clot present, likely recently bled. No significant swelling or redness to the surrounding perianal tissues or gluteal region, doubt perianal abscess at this time. EXTREMITIES: No edema or joint tenderness. BACK: Nontender without deformity or crepitance. No flank tenderness. NEURO: AOx3. Motor functions grossly nonfocal SKIN: No rash or erythema of visible areas Initial Vital Signs Initial Vital Signs: Vital Signs Temperature 98.3 F 09/02/24 15:49 Pulse Rate 74 09/02/24 15:49 Respiratory Rate 18 09/02/24 15:49 Blood Pressure 113/67 09/02/24 15:49 Pulse Oximetry 95 09/02/24 15:49 Oxygen Delivery Method Room Air 09/02/24 15:49 Course Orders Ordered: ED Orders 09/02/24 22:38 CBC Auto Diff [Complete Blood Count AUTO DIFF] Stat CMP [Comprehensive Metabolic Panel] Stat Prothrombin Time INR Stat Vital Signs Vital signs: Vital Signs - 8 hr 09/02/24 22:32 09/02/24 22:32 Pulse Rate 59 L Respiratory Rate 20 Blood Pressure 152/69 H Pulse Oximetry 95 Oxygen Delivery Method Room Air MDM - GI Bleed Lab Data Attestation: I reviewed the patient's lab results. Lab results narrative: White blood cell count 7300, hemoglobin 13. Platelets adequate. Normal renal function. Normal LFTs 09/02/24 22:38 09/02/24 22:38 Labs: Lab Results 09/02/24 Range/Units 22:38 WBC 7.3 (4.5-11.0) X10^3/uL RBC 4.48 (4.0-5.2) X10^6/uL Hgb 13.8 (12.0-16.0) g/dL Hct 40.4 (36-46) % MCV 90.1 (80-100) fL MCH 30.8 (26-34) PG MCHC 34.2 (30-36) % RDW 12.9 (11.6-14.8) % Plt Count 215 (150-400) X10^3/uL Neut % (Auto) 68.2 (50-75) % Lymph % (Auto) 22.0 L (25-40) % [place] % (Auto) 7.1 (3-14) % Eos % (Auto) 1.3 L (2-4) % Baso % (Auto) 1.4 (0-2) % Neut # (Auto) 5000 (7172-4940) /uL Lymph # (Auto) 1600 (6629-1436) /uL [place] # (Auto) 500 (0-900) /uL Eos # (Auto) 100 (0-450) /uL Baso # (Auto) 100 (0-100) /uL PT 12.2 (9.4-12.5) SECONDS INR 1.1 (0.9-1.3) Sodium 138 (137-145) mmol/L Potassium 4.0 (3.4-5.1) mmol/L Chloride 109 H (98-107) mmol/L Carbon Dioxide 22 (22-32) mmol/L BUN 13 (7-17) mg/dL Creatinine 0.85 (0.52-1.04) mg/dL Estimated GFR > 60 (>60) mL/min BUN/Creatinine Ratio 15.3 (6-22) Glucose 91 (80-110) mg/dL Calcium 11.0 H (8.4-10.2) mg/dL Total Bilirubin 0.5 (0.2-1.3) mg/dL AST 22 (14-36) IU/L ALT 17 (<35) IU/L Alkaline Phosphatase 107 (38-126) U/L Total Protein 7.1 (6.3-8.2) g/dL Albumin 4.4 (3.5-5.0) g/dL Globulin 2.7 (1.7-4.1) g/dL Albumin/Globulin Ratio 1.6 (1.0-2.8) MDM Narrative Medical decision making narrative: Rectal bleeding for the last 1 week, no recent perirectal anal colonoscopy procedures, no known history of hemorrhoids, has external thrombosed hemorrhoid small on examination, with some small clot, recently bled. Doubt by examination presence of perirectal abscess or gluteal region abscess at this time. We discussed stool softening measures to help prevent irritation the hemorrhoid, consider use of Colace. Increased fluids, continue Metamucil. Topical Anusol/Proctofoam discussed, we will send prescription to her pharmacy. Follow up with her surgeon Dr. Olvera advised. Discussed Sitz baths, conservative treatment measures. Could consider thrombectomy, conservative measures, not large enough to incise at this time. Discharge Plan Departure Patient Disposition: Home Clinical Impression: Rectal bleeding, External hemorrhoid, thrombosed Activity Restrictions/Additional Instructions: Rectal bleeding intermittently for the last week or so, no fevers, unremarkable vitals. On examination there is an external thrombosed hemorrhoid small that is present, with small central clot, likely recently has hemorrhage/bled. Doubt abscess infection in the perirectal area at this time. Consider stool softener, Colace or other [id number] should help with maintaining soft stools that now less likely to irritate the external hemorrhoid. Consider use of topical Anusol/Proctofoam topical steroids in that area to reduce inflammation and hopefully decrease discomfort as well, and hopefully reduce risk of bleeding. Sometimes these hemorrhoids need to be incised and popped out, or have the hemorrhoid itself removed surgically. Consider follow up with your surgeon Dr. Olvera. These can continue to bleed, although they usually are fairly low volume bleeding for patients that are not on blood thinners, you are not on blood thinner medications. Consider use of warm water Sitz baths daily for the next few days. Follow up with your surgeon, call office early next week. Return to this/nearest emergency department for any change worsening symptoms or any concerns prior Prescriptions: New pramoxine [Proctofoam] 1 % foam 1 applic NE BID Qty: 15 1RF docusate sodium [Colace] 100 mg capsule 100 mg PO BID Qty: 14 0RF No Action lisinopril 10 mg tablet 10 mg PO QDAY Qty: 90 3RF citalopram [Celexa] 20 mg tablet 20 mg PO DAILY Qty: 90 3RF anastrozole 1 mg tablet 1 mg PO DAILY risedronate 150 mg tablet 150 mg PO QMONTH Qty: 3 3RF Rx Instructions: administer at least 30 minutes before the first food or drink of the day other than water. celecoxib [Celebrex] 200 mg capsule 200 mg PO DAILY PRN (Reason: Pain) Qty: 90 3RF alprazolam 0.5 mg tablet 0.5 mg PO Q8H PRN (Reason: Anxiety) Qty: 20 0RF albuterol sulfate 90 mcg/actuation Hfa Aerosol Inhaler 2 puff INHALATION Q4-6H PRN (Reason: Shortness Of Breath) Referrals: Rey Olvera MD [Physician] - Deo Ryder MD [Primary Care Provider] - Stand Alone Forms: Patient Portal/API/Survey
--- NOTE | 2024-09-02 22:41 | PC.NURSE ---
21g straight stick done for lab draw left AC without complications.
[2024-09-02 22:52] LABS: Add Manual Diff / Slide Review NO; Basophils Absolute Auto 100 /uL (0-100); Basophils Percent Auto 1.4 % (0-2); Eosinophils Absolute Auto 100 /uL (0-450); Eosinophils Percent Auto 1.3 % (2-4); Hematocrit 40.4 % (36-46); Hemoglobin 13.8 g/dL (12.0-16.0); Lymphocytes Absolute Auto 1600 /uL (1100-4500); Mean Corpuscular HGB Conc 34.2 % (30-36); Mean Corpuscular Hemoglobin 30.8 PG (26-34); Mean Corpuscular Volume 90.1 fL (80-100); Monocytes Absolute Auto 500 /uL (0-900); Monocytes Percent Auto 7.1 % (3-14); Neutrophils Absolute Auto 5000 /uL (1500-7000); Neutrophils Percent Auto 68.2 % (50-75); Platelet Count 215 X10^3/uL (150-400); Red Blood Cell Count 4.48 X10^6/uL (4.0-5.2); Red Cell Distribution Width 12.9 % (11.6-14.8); White Blood Cell Count 7.3 X10^3/uL (4.5-11.0)
[2024-09-02 22:55] LABS: INR 1.1 (0.9-1.3); Prothrombin Time 12.2 SECONDS (9.4-12.5)
[2024-09-02 22:59] LABS: Alanine Aminotransferase 17 IU/L (<35); Albumin 4.4 g/dL (3.5-5.0); Albumin Globulin Ratio 1.6 (1.0-2.8); Alkaline Phosphatase 107 U/L (38-126); Aspartate Aminotransferase 22 IU/L (14-36); BUN Creatinine Ratio 15.3 (6-22); Bilirubin Total 0.5 mg/dL (0.2-1.3); Blood Urea Nitrogen 13 mg/dL (7-17); Carbon Dioxide 22 mmol/L (22-32); Chloride 109 mmol/L (98-107); Estimated Glomerular Filt Rate > 60 mL/min (>60); Globulin 2.7 g/dL (1.7-4.1); Glucose 91 mg/dL (80-110); HEMOLYSIS < 15 (0-50); Sodium 138 mmol/L (137-145); Total Protein 7.1 g/dL (6.3-8.2)
== END 2024-09-02 22:44 | disposition home or self-care (01) ==
PROVIDERS: Emergency Provider Emergency Medicine; PCP Internal Medicine
DX: K64.5 Perianal venous thrombosis (principal); C50.911 Malignant neoplasm of unspecified site of right female breast
CPT/HCPCS: 80053; 85025; 85610; 99281; 99283

== ENCOUNTER → 2024-10-28 10:45 | Outpatient (CLI) | payer MEDICARE, SELFPAY ==
[2024-10-28 12:02] LABS: Add Manual Diff / Slide Review NO; Basophils Absolute Auto 0 /uL (0-100); Basophils Percent Auto 0.7 % (0-2); Eosinophils Absolute Auto 100 /uL (0-450); Eosinophils Percent Auto 2.4 % (2-4); Hematocrit 41.8 % (36-46); Hemoglobin 13.9 g/dL (12.0-16.0); Lymphocytes Absolute Auto 1100 /uL (1100-4500); Lymphocytes Percent Auto 20.9 % (25-40); Mean Corpuscular HGB Conc 33.2 % (30-36); Mean Corpuscular Hemoglobin 30.4 PG (26-34); Mean Corpuscular Volume 91.6 fL (80-100); Monocytes Absolute Auto 300 /uL (0-900); Monocytes Percent Auto 6.3 % (3-14); Neutrophils Absolute Auto 3500 /uL (1500-7000); Neutrophils Percent Auto 69.7 % (50-75); Platelet Count 216 X10^3/uL (150-400); Red Blood Cell Count 4.57 X10^6/uL (4.0-5.2); White Blood Cell Count 5.1 X10^3/uL (4.5-11.0)
[2024-10-28 12:53] LABS: Alanine Aminotransferase 24 IU/L (<35); Albumin 4.1 g/dL (3.5-5.0); Albumin Globulin Ratio 1.8 (1.0-2.8); Alkaline Phosphatase 101 U/L (38-126); Aspartate Aminotransferase 26 IU/L (14-36); BUN Creatinine Ratio 13.8 (6-22); Bilirubin Total 0.5 mg/dL (0.2-1.3); Blood Urea Nitrogen 12 mg/dL (7-17); Calcium 10.7 mg/dL (8.4-10.2); Carbon Dioxide 28 mmol/L (22-32); Chloride 107 mmol/L (98-107); Cholesterol 217 mg/dL (140-199); Estimated Glomerular Filt Rate > 60 mL/min (>60); Globulin 2.3 g/dL (1.7-4.1); Glucose 96 mg/dL (80-110); HDL Cholesterol 81 mg/dL (40-60); HEMOLYSIS < 15 (0-50); LDL Cholesterol Calculated 115 mg/dL (<100); Potassium 4.6 mmol/L (3.4-5.1); Sodium 137 mmol/L (137-145); Total Protein 6.4 g/dL (6.3-8.2); Triglycerides 103 mg/dL (35-150)
== END ==
PROVIDERS: PCP Internal Medicine; Referring Provider Internal Medicine; Visit Provider Internal Medicine
DX: I10 Essential (primary) hypertension (principal); E83.52 Hypercalcemia; C50.211 Malignant neoplasm of upper-inner quadrant of right female breast; Z17.0 Estrogen receptor positive status [ER+]; D35.1 Benign neoplasm of parathyroid gland
CPT/HCPCS: 36415; 80053; 80061; 82310; 82330; 83970; 85025

== ENCOUNTER → 2025-02-07 16:01 | Outpatient (CLI) | payer MEDICARE, SELFPAY ==
[2025-02-07 16:37] LABS: Add Manual Diff / Slide Review NO; Basophils Absolute Auto 0 /uL (0-100); Basophils Percent Auto 0.6 % (0-2); Eosinophils Absolute Auto 100 /uL (0-450); Eosinophils Percent Auto 1.2 % (2-4); Hematocrit 40.6 % (36-46); Hemoglobin 13.7 g/dL (12.0-16.0); Lymphocytes Absolute Auto 1000 /uL (1100-4500); Mean Corpuscular HGB Conc 33.8 % (30-36); Mean Corpuscular Hemoglobin 30.4 PG (26-34); Mean Corpuscular Volume 89.9 fL (80-100); Monocytes Absolute Auto 500 /uL (0-900); Monocytes Percent Auto 6.4 % (3-14); Neutrophils Absolute Auto 6800 /uL (1500-7000); Neutrophils Percent Auto 79.8 % (50-75); Platelet Count 256 X10^3/uL (150-400); Red Blood Cell Count 4.51 X10^6/uL (4.0-5.2); Red Cell Distribution Width 12.9 % (11.6-14.8); White Blood Cell Count 8.5 X10^3/uL (4.5-11.0)
[2025-02-07 16:44] LABS: Alanine Aminotransferase 21 IU/L (<35); Albumin 4.6 g/dL (3.5-5.0); Albumin Globulin Ratio 1.6 (1.0-2.8); Alkaline Phosphatase 89 U/L (38-126); Aspartate Aminotransferase 27 IU/L (14-36); BUN Creatinine Ratio 17.6 (6-22); Bilirubin Total 0.5 mg/dL (0.2-1.3); Blood Urea Nitrogen 15 mg/dL (7-17); Carbon Dioxide 25 mmol/L (22-32); Chloride 105 mmol/L (98-107); Estimated Glomerular Filt Rate > 60 mL/min (>60); Globulin 2.8 g/dL (1.7-4.1); Glucose 101 mg/dL (80-110); HEMOLYSIS < 15 (0-50); Potassium 4.3 mmol/L (3.4-5.1); Sodium 137 mmol/L (137-145); Total Protein 7.4 g/dL (6.3-8.2)
[2025-02-07 17:17] LABS: TSH w/ Reflex to FT4 0.98 uIU/mL (0.47-4.68)
[2025-02-07 17:36] LABS: Vitamin B12 306 pg/mL (239-931)
[2025-02-09 19:36] LABS: Parathyroid Hormone, Intact 75 pg/mL (15-65)
== END ==
PROVIDERS: PCP Internal Medicine; Referring Provider Internal Medicine; Visit Provider Internal Medicine
DX: E03.9 Hypothyroidism, unspecified (principal); D35.1 Benign neoplasm of parathyroid gland; M81.0 Age-related osteoporosis without current pathological fracture; D64.9 Anemia, unspecified
CPT/HCPCS: 36415; 80053; 82310; 82607; 83970; 84443; 85025

== ENCOUNTER → 2025-03-21 17:06 | Outpatient (CLI) | payer MEDICARE, SELFPAY ==
--- NOTE | 2025-03-21 17:12 | DI.MG.S_ITS ---
MM screening mammo BI: 03/21/2025. BI-RADS: 2 CLINICAL: 74-year old female for bilateral screening mammogram. No Tyrer-Cuzick risk score calculation due to the patient's personal history of breast cancer. Patient reports a history of right breast carcinoma diagnosed at age 73. Status-post right lumpectomy with radiation therapy. No first-degree family history of breast cancer. Patient was diagnosed within the last 5 years. The patient had a prior right breast biopsy. PRIOR EXAMS 08/23/2024, 01/13/2024, 01/08/2024, 12/25/2023, 11/28/2023, 10/28/2023, 10/13/2023, 10/10/2022, 04/05/2022, 09/14/2021, 08/24/2021, 05/29/2020, 05/19/2019, 04/17/2018, 02/03/2017, 02/01/2016, 01/22/2016. MAMMOGRAPHY TECHNIQUE: 2D and 3D (tomosynthesis) digital mammographic views obtained, with additional images as needed for full coverage. Current study was also evaluated with a Computer Aided Detection (CAD) system. DENSITY C. The breasts are heterogeneously dense, which may obscure small masses. MAMMOGRAPHY FINDINGS Right: Benign-appearing post-surgical changes noted on the right. There are no suspicious masses, calcifications, or other findings in the breast. Left: No suspicious mass, asymmetry, microcalcification, or other abnormality seen. IMPRESSION: Right * No evidence of malignancy with benign findings. Left * No evidence of malignancy. RECOMMENDATIONS Bilateral * Annual screening mammography. OVERALL ASSESSMENT CATEGORY BI-RADS-2: Benign. The [employer] recommends annual screening mammography beginning at age 40 for women with average risk of breast cancer. ELECTRONICALLY SIGNED: Tatiana Patel M.D. on 03/22/2025 at 01:16:46 AM PT Interpreting Station ID: [id number]
== END ==
LOC: MAMMO 17:10
PROVIDERS: PCP Internal Medicine; Referring Provider Surgery; Visit Provider Surgery
DX: Z12.31 Encounter for screening mammogram for malignant neoplasm of breast (principal); Z85.3 Personal history of malignant neoplasm of breast; R92.333 Mammographic heterogeneous density, bilateral breasts
CPT/HCPCS: 77063; 77067

== ENCOUNTER 2025-06-12 00:55 | Emergency (ER) | payer MEDICARE, SELFPAY ==
[2025-06-12 01:05] VITALS: BP 142/64; PULSE 87; RESP 17; TEMP 37.4; O2SAT 99; BMI 23.9
--- NOTE | 2025-06-12 01:10 | ED.ABDPAIN ---
HPI - Abdominal Pain General Chief Complaint: Abdominal Pain Stated Complaint: Abdominal Pain Time Seen by Provider: 06/12/25 01:02 Source: patient Mode of arrival: Ambulatory History of Present Illness HPI narrative: Patient is a 74-year-old female with past medical history of hypertension, comes into the ED from home for evaluation of abdominal pain, she states that she is having lower abdominal pain ongoing and persistent for the past few days states that she attributes this to constipation, states that she normally has history of constipation was able to have a bowel movement yesterday at around noon, states that Chavo did have improved symptoms but states that she had recurrence attempted to have another bowel movement but states that she was unable to do so therefore decided come into the ED for further evaluation treatment. She denies any other symptoms at this time. No nausea no vomiting no other GI/ symptoms at this time. Related Data Home Medications ?Medication ?Instructions ?Recorded ?Confirmed albuterol sulfate 90 mcg/actuation 2 puff inhalation Q4-6H PRN 01/09/24 06/12/25 aerosol inhaler Shortness Of Breath Previous Rx's ?Medication ?Instructions ?Recorded celecoxib 200 mg capsule (Celebrex) 200 mg PO DAILY PRN Pain #90 caps 08/20/24 alprazolam 0.5 mg tablet 0.5 mg PO Q8H PRN Anxiety #20 tabs 10/15/24 citalopram 20 mg tablet (Celexa) 20 mg PO DAILY #90 tabs 05/04/25 lisinopril 10 mg tablet 10 mg PO QDAY #90 tabs 05/04/25 ciprofloxacin HCl 500 mg tablet 500 mg PO BID 10 days #20 tabs 06/12/25 metronidazole 500 mg tablet 500 mg PO BID 10 days #20 tabs 06/12/25 Allergies Allergy/AdvReac Type Severity Reaction Status Date / Time Penicillins (PENICILLINS) Allergy Mild RASH Verified 06/12/25 01:03 doxycycline (DOXYCYCLINE) AdvReac Mild NAUSEA Verified 06/12/25 01:03 Review of Systems Review of Systems Narrative: General: Denies fever, chills, weight loss HEENT: Denies headache, eye drainage, eye irritation, head trauma, sore throat, voice change Cardiovascular: Denies any chest pain, palpitations, tachycardia Respiratory: Denies any shortness of breath, cough, wheeze, stridor GI/: Positive abdominal pain, constipation, nausea, vomiting, diarrhea, bright red blood per rectum, melanotic stools, urinary frequency, urinary retention, dysuria, hematuria MSK: Denies any joint pain, muscle pains, swelling Skin: Denies any rashes, lesions, discoloration Neuro: Denies any headache, lightheadedness, dizziness, fainting, weakness Psych: Denies SI/HI Patient History Medical History (Updated 06/12/25 @ 02:59 by Jose De Jesus Carrillo DO) Thrombosed hemorrhoids Breast cancer, right Family history of colonic polyps Osteoporosis Sciatica Arthritis Sinus drainage Anxiety Facet arthropathy, lumbar Facet arthropathy, cervical Hypercalcemia Parathyroid adenoma Degeneration of intervertebral disc, site unspecified (02/11/12) Recurrent major depressive disorder, in full remission (09/12/17) Osteopenia (04/12/14) Hypertension Asthma (02/11/12) Surgical History History of lumpectomy of right breast (01/13/24) [place] teeth removed (1969) Family History Father Hypertension Mother Dementia Social History household members: spouse Smoking Status: Never smoker alcohol intake: current Smoking Status: Never smoker alcohol intake frequency: holidays/special occasions only Exam Narrative Exam Narrative: General: Cooperative, well-developed, not in acute distress HEENT: Normocephalic, atraumatic, PERRLA, normal sclera, eyelids normal Neck: Active full range of motion, atraumatic Chest: Normal to inspection, negative crepitus, no overlying erythema ecchymosis Respiratory: Normal respiratory effort, not in acute respiratory distress, clear to auscultation bilaterally negative cough, wheeze, tachypnea, rhonchi, rales Cardiology: Regular rate rhythm negative gallop, murmur, rubs GI/: No tenderness to palpation, soft, non rigid, normal to inspection, exam deferred MSK: Full active range of motion in all 4 extremities, atraumatic, no tenderness to palpation of any bony prominences Skin: No rashes or lesions noted Neuro: Alert awake oriented x3, moves all 4 extremities spontaneously, cranial nerves intact, able to answer all questions appropriately follows commands appropriately Psych: Cooperative, negative suicidal or homicidal ideations Initial Vital Signs Initial Vital Signs: Vital Signs Temperature 99.4 F 06/12/25 01:05 Pulse Rate 87 06/12/25 01:05 Respiratory Rate 17 06/12/25 01:05 Blood Pressure 142/64 H 06/12/25 01:05 Pulse Oximetry 99 06/12/25 01:05 Oxygen Delivery Method Room Air 06/12/25 01:05 Course Orders Ordered: ED Orders 06/12/25 01:20 CT abdomen pelvis w con Stat 06/12/25 01:25 Urine Microscopic Stat 06/12/25 01:30 Complete Blood Count AUTO DIFF Stat Comprehensive Metabolic Panel Stat Lactate (Lactic Acid) Stat Lipase Stat MAG [Magnesium] Stat Vital Signs Vital signs: Vital Signs - 8 hr 06/12/25 01:05 06/12/25 02:45 06/12/25 02:46 Temperature 99.4 F Pulse Rate 87 83 84 Respiratory Rate 17 48 H 23 Blood Pressure 142/64 H Pulse Oximetry 99 97 97 Oxygen Delivery Method Room Air Room Air 06/12/25 02:46 Temperature Pulse Rate Respiratory Rate Blood Pressure 156/70 H Pulse Oximetry Oxygen Delivery Method MDM - Abdominal Pain Differential Diagnosis Differential diagnosis: Likely abdominal pain, acute appendicitis, calculus of kidney, constipation, diverticulitis, pancreatitis, small bowel obstruction and other (Electrolyte abnormality, urinary tract infection) Lab Data 06/12/25 01:30 06/12/25 01:30 Labs: Lab Results 06/12/25 Range/Units 01:30 WBC 13.0 H (4.5-11.0) X10^3/uL RBC 4.53 (4.0-5.2) X10^6/uL Hgb 13.8 (12.0-16.0) g/dL Hct 40.4 (36-46) % MCV 89.3 (80-100) fL MCH 30.4 (26-34) PG MCHC 34.0 (30-36) % RDW 13.2 (11.6-14.8) % Plt Count 216 (150-400) X10^3/uL Neut % (Auto) 84.5 H (50-75) % Lymph % (Auto) 8.4 L (25-40) % Hendricks % (Auto) 6.3 (3-14) % Eos % (Auto) 0.4 L (2-4) % Baso % (Auto) 0.4 (0-2) % Neut # (Auto) 61589 H (2077-0585) /uL Lymph # (Auto) 1100 (2573-0381) /uL Hendricks # (Auto) 800 (0-900) /uL Eos # (Auto) 100 (0-450) /uL Baso # (Auto) 0 (0-100) /uL Sodium 136 L (137-145) mmol/L Potassium 4.2 (3.4-5.1) mmol/L Chloride 103 (98-107) mmol/L Carbon Dioxide 25 (22-32) mmol/L BUN 15 (7-17) mg/dL Creatinine 0.87 (0.52-1.04) mg/dL Estimated GFR > 60 (>60) mL/min BUN/Creatinine Ratio 17.2 (6-22) Glucose 129 H (70-99) mg/dL Lactate 1.2 (0.7-2.1) mmol/L Calcium 10.6 H (8.4-10.2) mg/dL Magnesium 2.0 (1.6-2.3) mg/dL Total Bilirubin 0.5 (0.2-1.3) mg/dL AST 24 (14-36) IU/L ALT 19 (<35) IU/L Alkaline Phosphatase 117 (38-126) U/L Total Protein 7.4 (6.3-8.2) g/dL Albumin 4.4 (3.5-5.0) g/dL Globulin 3.0 (1.7-4.1) g/dL Albumin/Globulin Ratio 1.5 (1.0-2.8) Lipase 120 (23-300) U/L Point of care testing: Urine Dip Bedside Urine Glucose Negative Bedside Urine Bilirubin - Negative Bedside Urine Ketone - Negative Urine Specific [place] 1.015 Bedside Urine Occult Blood - Negative Bedside Urine pH 6.5 Bedside Urine Protein - Negative Bedside Urine Urobilinogen - Negative Bedside Urine Nitrite - Negative Bedside Urine Leukocytes +/- [address] scan - abdomen/pelvis: Radiologist's Impression: Preliminary read showing acute diverticulitis of the sigmoid no focal drainable collection or pneumoperitoneum, large volume of stool with constipation otherwise no other acute findings MDM Narrative Medical decision making narrative: Patient is a 74-year-old female past medical history of hypertension constipation coming in for lower abdominal pain, states it has been ongoing persistent for the past few days, states that she attributed to constipation was able to have a bowel movement on 06/11/2025 at around noon, states that her symptoms did improve but states that they came back and states that it has not gone away despite trying to move her bowels again. She denies any other symptoms at this time. Patient had lab work imaging urinalysis performed here in the emergency department. Patient CT scan was consistent with diverticulitis without abscess or perforation, patient was given 1st dose of antibiotics here instructed follow up with primary care and GI in outpatient setting, patient was given strict return precautions he verbalized understanding of this and agrees to being discharged home with outpatient follow up Discharge Plan Departure Patient Disposition: Home Clinical Impression: Diverticulitis Instructions: DI for Diverticulitis Activity Restrictions/Additional Instructions: Please follow up with your primary care doctor and petroleum production engineer in outpatient setting Please read the discharge instructions sheet carefully and bring all papers to all doctor follow-up visits, as it may contain information that your doctor may want to see. Disease processes change and evolve, if your symptoms worsen or if you develop any new symptoms that are concerning to you please return for evaluation. Your evaluation today does not show any evidence of any life-threatening/serious illnesses requiring admission to the hospital or surgery. Please follow-up with your doctor for re-evaluation in approximately 1 day. Seek immediate medical attention for any worrisome symptoms. *If you do not have a primary care provider please contact the [facility] Resource line at [phone]. They will ask some questions about your medical history and help get you set up with a doctor in the community. Prescriptions: New metronidazole 500 mg tablet 500 mg PO BID 10 Days Qty: 20 0RF ciprofloxacin HCl 500 mg tablet 500 mg PO BID 10 Days Qty: 20 0RF No Action lisinopril 10 mg tablet 10 mg PO QDAY Qty: 90 3RF citalopram [Celexa] 20 mg tablet 20 mg PO DAILY Qty: 90 3RF celecoxib [Celebrex] 200 mg capsule 200 mg PO DAILY PRN (Reason: Pain) Qty: 90 3RF alprazolam 0.5 mg tablet 0.5 mg PO Q8H PRN (Reason: Anxiety) Qty: 20 0RF albuterol sulfate 90 mcg/actuation Hfa Aerosol Inhaler 2 puff INHALATION Q4-6H PRN (Reason: Shortness Of Breath) Referrals: Jamie Lindsay MD [Non-Staff, Internal Medicine] Referral Note: Diverticulitis Deo Ryder MD [Primary Care Provider, Internal Medicine] Stand Alone Forms: Patient Portal/API
--- NOTE | 2025-06-12 01:20 | DI.CT.S_ITS ---
PROCEDURE: CT ABDOMEN PELVIS W CON INDICATIONS: lower abd pain, constipation TECHNIQUE: After the administration of intravenous contrast, axial sections acquired from the lung bases to the pubic symphysis. Coronal and sagittal reformats were performed. For radiation dose reduction, the following was used: automated exposure control, adjustment of mA and/or kV according to patient size. COMPARISON: [facility], CT, CT ABDOMEN PELVIS W CON, 10/06/2019, 19:28. FINDINGS: Image quality: Diagnostic. Lower Chest: Bibasilar scarring/atelectasis are seen. Heart size is normal no pericardial effusion. Small hiatal hernia is seen. ABDOMEN: Liver: No solid mass. Gallbladder: Calcified stones are noted in dependent portion of gallbladder lumen. No gallbladder wall thickening. Biliary ducts: No biliary dilation. Pancreas: No ductal dilation. Spleen: Size is within normal limits. Adrenal Glands: No adrenal nodules. Kidneys and Ureters: No hydronephrosis. No solid mass. No complex renal cystic lesion which requires follow up. Stomach and Bowel: Significant bowel wall thickening with adjacent mesenteric fat stranding involving proximal to mid sigmoid colon in left lower quadrant is seen. Narrowing of sigmoid colon lumen is also noted. No abscess collection. No extra luminal air. No other area of abnormal bowel wall thickening. Peritoneum: No abnormal intraperitoneal fluid. No free air. Ventral Wall: No significant ventral hernia. Abdominal Nodes: No retroperitoneal or mesenteric adenopathy by size criteria. Vessels: Aorta and inferior vena cava are normal in size. PELVIS: Pelvic Organs: Bulky appearing uterus with suggestion of uterine fibroids. Bladder: No bladder wall thickening, accounting for underdistention. Pelvic Nodes: No enlarged lymph nodes. Miscellaneous: No inguinal hernias are seen. Bones: No aggressive osseous abnormality. IMPRESSION: 1. Finding is suggestive of acute diverticulitis involving proximal to mid sigmoid colon in left lower quadrant. Underlying neoplastic process cannot be excluded. Clinical correlation and follow-up is recommended. 2. No abscess collection. No other area of abnormal bowel wall thickening. Moderate constipation. No bowel obstruction. No free fluid or free air. 3. Uterine fibroids. 4. Cholelithiasis without CT evidence of acute cholecystitis. No discrepancies from preliminary reading. Dictated by: Hao Foster M.D. on 06/12/2025 at 8:48 Approved by: Hao Foster M.D. on 06/12/2025 at 8:50
[2025-06-12 01:37] LABS: Add Manual Diff / Slide Review NO; Hematocrit 40.4 % (36-46); Hemoglobin 13.8 g/dL (12.0-16.0); Lymphocytes Absolute Auto 1100 /uL (1100-4500); Mean Corpuscular HGB Conc 34.0 % (30-36); Mean Corpuscular Hemoglobin 30.4 PG (26-34); Mean Corpuscular Volume 89.3 fL (80-100); Platelet Count 216 X10^3/uL (150-400)
[2025-06-12 01:53] LABS: Lactate (Lactic Acid) 1.2 mmol/L (0.7-2.1)
[2025-06-12 01:54] LABS: Alanine Aminotransferase 19 IU/L (<35); Albumin 4.4 g/dL (3.5-5.0); Albumin Globulin Ratio 1.5 (1.0-2.8); Alkaline Phosphatase 117 U/L (38-126); Blood Urea Nitrogen 15 mg/dL (7-17); Calcium 10.6 mg/dL (8.4-10.2); Carbon Dioxide 25 mmol/L (22-32); Chloride 103 mmol/L (98-107); Estimated Glomerular Filt Rate > 60 mL/min (>60); Globulin 3.0 g/dL (1.7-4.1); Glucose 129 mg/dL (70-99); HEMOLYSIS < 15 (0-50); Lipase 120 U/L (23-300); Potassium 4.2 mmol/L (3.4-5.1); Sodium 136 mmol/L (137-145); Total Protein 7.4 g/dL (6.3-8.2)
[2025-06-12 02:05] LABS: Magnesium 2.0 mg/dL (1.6-2.3)
[2025-06-12 02:45] VITALS: PULSE 83; RESP 48; O2SAT 97
[2025-06-12 02:46] VITALS: BP 156/70; PULSE 84; RESP 23; O2SAT 97
[2025-06-12 03:00] VITALS: BP 150/67; PULSE 81; RESP 17; O2SAT 95
[2025-06-12] MEDS: CIPROFLOXACIN 250 MG TABLET 500 MG PO (03:04)
[2025-06-12 03:13] LABS: Culture Indicated Urine Cult Not Indicated
== END 2025-06-12 03:12 | disposition home or self-care (01) ==
PROVIDERS: Emergency Provider Student in an Organized Health Care Education/Training Program; PCP Internal Medicine
DX: K57.32 Diverticulitis of large intestine without perforation or abscess without bleeding (principal)
CPT/HCPCS: 36415; 74177; 80053; 81003; 81015; 83605; 83690; 83735; 85025; 99283; 99284; Q9967